=== PATIENT | female | born 1935 | race Caucasian/White ===

== ENCOUNTER → 2018-09-10 10:51 | Outpatient (CLI) | payer MEDICARE, BC, SELFPAY ==
--- NOTE | 2018-09-10 10:55 | DI.RAD.S_ITS ---
PROCEDURE: XR KNEE LT 3V INDICATIONS: CHRONIC KNEE PAIN TECHNIQUE: 3 views of the knee were acquired. COMPARISON: None. FINDINGS: Bones: No fractures or dislocations. No suspicious bony lesions. Chondrocalcinosis projecting in the lateral compartment. There is mild-moderate medial joint space narrowing. Scattered degenerative subchondral sclerosis and spurring. Severe narrowing of the patellofemoral joint space. Soft tissues: No joint effusion. No suspicious soft tissue calcifications. Scattered vascular calcifications. Anterior soft tissue swelling. IMPRESSION: Severe degenerative disease, most pronounced involving the patellofemoral compartment. Chondrocalcinosis. Dictated by: Reji Hitchcock M.D. on 09/10/2018 at 14:07 Approved by: Reji Hitchcock M.D. on 09/10/2018 at 14:08
--- NOTE | 2018-09-10 10:55 | DI.RAD.S_ITS ---
PROCEDURE: XR LUMBAR SPINE MIN 4V INDICATIONS: CHRONIC BACK PAIN TECHNIQUE: 3 views of the lumbar spine were acquired. COMPARISON: [facility], RG, CT L SPINE WITHOUT CONTRAST, 07/06/2017, 6:42. FINDINGS: Bones: L2 compression fracture, with large anterosuperior endplate fracture fragment, and interval height loss since 07/06/17 however no more recent comparison studies. The remaining vertebral body heights appear preserved. Diffuse facet arthropathy. Grade 1 anterolisthesis of L5 on S1. Diffuse mild narrowing of the lumbar disc spaces, with relative sparing at L4-L5. There is levocurvature Soft tissues: Numerous aortic vascular calcifications. Oblique images: No pars defects. IMPRESSION: L2 compression fracture, with interval height loss is 07/06/17 however no additional more recent comparison studies available. If further assessment is necessary, MRI could be performed to evaluate for the presence of marrow edema. Chronic spondylosis and facet arthropathy as above. Grade 1 anterolisthesis of L5 on S1. Levocurvature Dictated by: Reji Hitchcock M.D. on 09/10/2018 at 14:03 Approved by: Reji Hitchcock M.D. on 09/10/2018 at 14:07
== END ==
PROVIDERS: PCP Family Medicine; Visit Provider Physical Medicine & Rehabilitation
DX: M54.9 Dorsalgia, unspecified (principal); M25.562 Pain in left knee; S32.020A Wedge compression fracture of second lumbar vertebra, initial encounter for closed fracture; M47.26 Other spondylosis with radiculopathy, lumbar region; M43.17 Spondylolisthesis, lumbosacral region; M17.12 Unilateral primary osteoarthritis, left knee; M11.262 Other chondrocalcinosis, left knee; G89.29 Other chronic pain
CPT/HCPCS: 72110; 73562; 99215

== ENCOUNTER 2022-01-27 10:37 | Inpatient (IN) | payer MEDICARE, BC, SELFPAY ==
[2022-01-27] VITALS (36 sets, daily range): BP systolic 90–151; BP diastolic 50–86; PULSE 71–95; RESP 10–31; TEMP 36.4; O2SAT 74–99
--- NOTE | 2022-01-27 10:48 | DI.RAD.S_ITS ---
PROCEDURE: XR HIP W PEL IF DONE LT 2V INDICATIONS: Fall, burning left hip pain TECHNIQUE: AP pelvis with lateral view(s) of the left hip(s). COMPARISON: [facility], CT, CT PEL WO CON, 01/27/2022, 11:13. FINDINGS: Bones: There are comminuted fractures of both the superior and inferior left pubic ramus. Hip joint appears intact. Soft tissues: The visualized bowel gas pattern is normal. No suspicious soft tissue calcifications. IMPRESSION: Comminuted minimally displaced superior inferior left pubic rami fractures. Dictated by: Caitlyn Zhang M.D. on 01/27/2022 at 11:23 Approved by: Caitlyn Zhang M.D. on 01/27/2022 at 11:24
--- NOTE | 2022-01-27 11:04 | DI.CT.S_ITS ---
PROCEDURE: CT PEL WO CON INDICATIONS: Fall/pain TECHNIQUE: Noncontrast 3 mm axial sections acquired through the bony pelvis, with coronal and sagittal reformatting. COMPARISON: [facility], , CT L SPINE WITHOUT CONTRAST, 07/06/2017, 6:42. FINDINGS: Image quality: Excellent. Bones: Comminuted fractures of the left superior and inferior pubic rami. The superior pubic ramus fracture is markedly comminuted. No other fractures or dislocations. Hip joints are intact. There is a L5 compression, which is likely chronic. There is severe canal stenosis at L4-L5. Soft tissues: There is a small left pelvic sidewall hematoma. There is a subcutaneous hematoma lateral to the greater tuberosity of the left hip. There is a chronic left UPJ obstruction with marked dilatation of the collecting system and a thin rim cortical tissue, consistent with a nonfunctioning left kidney. IMPRESSION: 1. Comminuted left superior and inferior pubic ramus fractures. 2. Associated pelvic sidewall hematoma, small. Associated subcutaneous hematoma lateral to the greater trochanter of the left hip. 3. L5 compression fracture suggests severe underlying osteoporosis. 4. Severe canal stenosis at L4-L5. 5. 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 Dictated by: Grant Reynoso M.D. on 01/27/2022 at 11:32 Approved by: Grant Reynoso M.D. on 01/27/2022 at 11:36
--- NOTE | 2022-01-27 11:25 | PC.NURSE ---
pt had dialysis yesterday monday01/26/22 and is due again tomorrow monday01/28/22. fistula to right arm no bp or sticks to that arm
[2022-01-27 11:50] LABS: COVID19 -Nasal RAPID Negative (Negative)
--- NOTE | 2022-01-27 11:50 | ED_ITS ---
HPI - Fall <Gregorio Ellis MD - Last Filed: 02/10/22 01:20> General Chief Complaint: Fall Stated Complaint: GLF, left groin pain Time Seen by Provider: 01/27/22 11:04 Source: EMS Mode of arrival: EMS History of Present Illness HPI Narrative: Patient brought in by ambulance for ground level fall at home. Patient was using her walker and it got hung up on the doorway. Fell onto her left hip area. Complains of left groin pain. Denies denies any other injuries. Is not on any blood thinners. Patient does have dialysis Monday and Fridays. Denies any recent illness. Denies any pre event nausea vomiting diarrhea, no chest pain headache palpitations or dyspnea prior to fall Related Data Home Medications Medication Instructions Recorded Confirmed gabapentin 300 mg capsule 600 mg PO ONCE PM 09/10/18 01/27/22 acetaminophen 500 mg tablet 1,000 mg PO Q8H PRN Pain (Scale 11/15/18 01/27/22 (Tylenol Extra Strength) Score 1-3) bisacodyl 10 mg rectal suppository 10 mg RI DAILY PRN Constipation 01/27/22 01/27/22 melatonin 3 mg tablet 3 mg PO BEDTIME PRN Sleep 01/27/22 01/27/22 ondansetron 4 mg disintegrating 4 mg PO Q6H PRN Nausea 01/27/22 01/27/22 tablet polyethylene glycol 3350 17 gram 17 g PO DAILY 01/27/22 01/27/22 oral powder packet (Miralax) sennosides 8.6 mg tablet (senna) 8.6 mg PO BID PRN Constipation 01/27/22 01/27/22 gabapentin 300 mg capsule 600 mg PO BEDTIME 01/28/22 01/28/22 Previous Rx's Medication Instructions Recorded fentanyl 12 mcg/hr transdermal 12 mcg topical Q72H 15 days #5 ea 02/01/22 patch oxycodone 5 mg tablet 5 - 10 mg PO Q3HR PRN Pain, Severe 02/01/22 (7-10) 14 days #60 tabs Allergies Allergy/AdvReac Type Severity Reaction Status Date / Time amoxicillin Allergy Verified 01/27/22 10:47 codeine Allergy Verified 01/27/22 10:47 hydrocodone Allergy Verified 01/27/22 10:47 Sulfa (Sulfonamide Allergy Verified 01/27/22 10:47 Antibiotics) Review of Systems <Gregorio Ellis MD - Last Filed: 02/10/22 01:20> Review of Systems Narrative: GENERAL: Denies chills, fatigue, malaise, fever, sweats. HEENT: Denies sinus pain, ear pain, sore throat RESPIRATORY: Denies dyspnea, cough CARDIOVASCULAR: Denies chest pain, palpitations GASTROINTESTINAL: Denies nausea, vomiting, abdominal pain : Denies dysuria, frequency, hematuria MUSCULOSKELETAL: Positive muscle or bony pain SKIN: Denies rash, skin lesions NEUROLOGIC: Denies weakness, numbness ROS Unobtainable: All systems reviewed & are unremarkable except as noted in HPI and below Patient History <Gregorio Ellis MD - Last Filed: 02/10/22 01:20> Social History household members: none Smoking Status: Never smoker alcohol intake: never Substance Use Type: does not use Exam <Gregorio Ellis MD - Last Filed: 02/10/22 01:20> Narrative Exam Narrative: GENERAL: in no distress, not toxic not dyspneic HEAD: Normocephalic. Nontender scalp and face EYES: Pupils equal round No scleral icterus. ENT: Mucous membranes moist. NECK: Trachea midline. CARDIOVASCULAR: Regular rate and rhythm without murmurs RESPIRATORY: Clear to auscultation. Breath sounds equal bilaterally. No wheezes, rales, or rhonchi. GASTROINTESTINAL: Abdomen soft, non-tender EXTREMITIES: No gross deformities. No shortening or rotation of the left lower extremity. Strong pedal pulse, feet or warm soft and pink. Pain with elevating/moving left leg. NEURO: AOx4. SKIN: Warm and dry PSYCH: Not anxious, is cooperative Initial Vital Signs Initial Vital Signs: Vital Signs Respiratory Rate 17 01/27/22 10:39 Blood Pressure 147/65 H 01/27/22 10:39 <Carroll Alves, DO - Last Filed: 01/29/22 23:20> Initial Vital Signs Initial Vital Signs: Vital Signs Respiratory Rate 17 01/27/22 10:39 Blood Pressure 147/65 H 01/27/22 10:39 <Zion Simon, DO - Last Filed: 01/28/22 18:59> Initial Vital Signs Initial Vital Signs: Vital Signs Respiratory Rate 17 01/27/22 10:39 Blood Pressure 147/65 H 01/27/22 10:39 <Reza Chawla MD - Last Filed: 01/29/22 13:45> Initial Vital Signs Initial Vital Signs: Vital Signs Respiratory Rate 17 01/27/22 10:39 Blood Pressure 147/65 H 01/27/22 10:39 Course <Gregorio Ellis MD - Last Filed: 02/10/22 01:20> Course Course Narrative: 6:00 p.m.. Sign out to Dr. Alves, patient has been seen by Physical therapy as well as social work. Patient will need transfer for sniff placement but also will need dialysis. Patient will need dialysis tomorrow. Orders Ordered: Discontinued Medications Acetaminophen (Acetaminophen 325 Mg Tablet) 975 mg PO NOW ONE Stop: 01/27/22 12:14 Last Admin: 01/27/22 12:24 Dose: 975 mg Documented By: ANJALI Atorvastatin Calcium (Atorvastatin 20 Mg Tablet) 10 mg PO NOW ONE Stop: 01/27/22 18:40 Last Admin: 01/27/22 19:09 Dose: Not Given Documented By: ANJALI(2) Atorvastatin Calcium (Atorvastatin 20 Mg Tablet) 40 mg PO NOW ONE Stop: 01/27/22 19:09 Last Admin: 01/27/22 21:12 Dose: 40 mg Documented By: CATHY Fentanyl (Fentanyl 12 Mcg/Patch) 12 mcg TOP Q72H [facility] Last Admin: 02/02/22 11:07 Dose: 12 mcg Documented By: Admin: 01/30/22 11:43 Dose: 12 mcg Documented By: RILEY Gabapentin (Gabapentin 300 Mg Capsule) 300 mg PO BEDTIME [facility] Last Admin: 01/28/22 21:51 Dose: 300 mg Documented By: Admin: 01/27/22 21:13 Dose: 300 mg Documented By: CATHY Gabapentin (Gabapentin 600 Mg Tablet) 600 mg PO BEDTIME [facility] Gabapentin (Gabapentin 300 Mg Capsule) 600 mg PO BEDTIME [facility] Last Admin: 02/01/22 20:11 Dose: 600 mg Documented By: Admin: 01/31/22 21:38 Dose: 600 mg Documented By: Admin: 01/30/22 21:08 Dose: 600 mg Documented By: Admin: 01/30/22 00:28 Dose: Not Given Documented By: CASTILLO Gabapentin (Gabapentin 300 Mg Capsule) 600 mg PO DAILY@1700 [facility] Last Admin: 02/01/22 18:30 Dose: 600 mg Documented By: Admin: 01/31/22 17:18 Dose: 600 mg Documented By: Admin: 01/30/22 17:04 Dose: 600 mg Documented By: Admin: 01/29/22 17:12 Dose: Not Given Documented By: AWF Lorazepam (Lorazepam 2 Mg/Ml Inj) 1 mg IV Q1HR PRN PRN Reason: Agitation/Anxiety Melatonin (Melatonin 3 Mg Tablet) 3 mg PO BEDTIME PRN PRN Reason: Sleep Morphine Sulfate (Morphine 2 Mg/Ml Inj) 2 mg IV Q30MIN PRN PRN Reason: Pain/Dyspnea Ondansetron HCl (Ondansetron 4 Mg/2 Ml Inj) 4 mg IV NOW ONE Stop: 01/27/22 12:14 Last Admin: 01/27/22 12:24 Dose: 4 mg Documented By: ANJALI Ondansetron HCl (Ondansetron 4 Mg/2 Ml Inj) 4 mg IV Q4HR PRN PRN Reason: Nausea And Vomiting Last Admin: 01/29/22 08:40 Dose: 4 mg Documented By: DAVID Oxycodone HCl (Oxycodone Ir 5 Mg Tablet) 5 mg PO Q4H PRN PRN Reason: Pain (Scale Score 4-6) Last Admin: 02/02/22 11:07 Dose: 5 mg Documented By: Admin: 01/30/22 19:17 Dose: 5 mg Documented By: Admin: 01/30/22 08:59 Dose: 5 mg Documented By: Admin: 01/30/22 03:28 Dose: 5 mg Documented By: CASTILLO Oxycodone HCl (Oxycodone Ir 5 Mg Tablet) 10 mg PO Q3HR PRN PRN Reason: Pain, Severe (7-10) Last Admin: 02/01/22 05:55 Dose: 10 mg Documented By: Admin: 01/31/22 18:29 Dose: 10 mg Documented By: Admin: 01/31/22 13:02 Dose: 10 mg Documented By: Admin: 01/31/22 05:31 Dose: 10 mg Documented By: Oxycodone/Acetaminophen (Oxycodone/Acetaminophen 5/325 Tablet) 1 tab PO NOW ONE Stop: 01/27/22 13:31 Last Admin: 01/27/22 13:46 Dose: 1 tab Documented By: CATHY Oxycodone/Acetaminophen (Oxycodone/Acetaminophen 5/325 Tablet) 1 tab PO NOW ONE Stop: 01/27/22 17:06 Last Admin: 01/27/22 17:17 Dose: 1 tab Documented By: CATHY Oxycodone/Acetaminophen (Oxycodone/Acetaminophen 5/325 Tablet) 1 tab PO NOW ONE Stop: 01/27/22 21:09 Last Admin: 01/27/22 21:12 Dose: 1 tab Documented By: CATHY Oxycodone/Acetaminophen (Oxycodone/Acetaminophen 5/325 Tablet) 1 tab PO Q4HR PRN PRN Reason: Pain, Severe (7-10) Last Admin: 01/29/22 14:44 Dose: 1 tab Documented By: Admin: 01/29/22 08:41 Dose: 1 tab Documented By: Admin: 01/28/22 22:02 Dose: 1 tab Documented By: Admin: 01/28/22 18:05 Dose: 1 tab Documented By: Admin: 01/28/22 11:06 Dose: 1 tab Documented By: Admin: 01/28/22 07:50 Dose: 1 tab Documented By: Admin: 01/28/22 02:25 Dose: 1 tab Documented By: JULIÁN Scopolamine (Scopolamine 1 Patch) 1 patch TOP Q72H PRN PRN Reason: Secretions Consultations Consultation #1: Spoke with Dr. Guadalupe, orthopedics, appropriate for medical management and physical therapy evaluation and treatment. Injury is nonsurgical. Vital Signs Vital signs: Vital Signs - 8 hr 01/29/22 08:27 01/29/22 08:28 01/29/22 08:28 Pulse Rate 108 H 107 H Blood Pressure 115/70 Pulse Oximetry 90 L 89 L 01/29/22 08:30 01/29/22 08:30 01/29/22 08:59 Pulse Rate 108 H 92 H Blood Pressure 101/56 L Pulse Oximetry 90 L 95 01/29/22 09:00 01/29/22 09:30 01/29/22 09:31 Pulse Rate 103 H 103 H Blood Pressure 107/72 Pulse Oximetry 97 96 01/29/22 09:31 01/29/22 10:00 01/29/22 10:00 Pulse Rate 104 H Blood Pressure 94/60 127/63 Pulse Oximetry 98 01/29/22 10:30 01/29/22 10:30 01/29/22 11:00 Pulse Rate 110 H 109 H Blood Pressure 123/87 Pulse Oximetry 99 100 01/29/22 11:01 01/29/22 11:01 Pulse Rate 109 H Blood Pressure 152/77 H Pulse Oximetry 100 <Carroll Alves, DO - Last Filed: 01/29/22 23:20> Course Course Narrative: 6:00 p.m.. Sign out to Dr. Alves, patient has been seen by Physical therapy as well as social work. Patient will need transfer for sniff placement but also will need dialysis. Patient will need dialysis tomorrow. [1800] (Long) Patient received in sign out from [Caleb]. I have reviewed the clinical course and performed an independent history and physical exam. Patient resting comfortably, she understands and agrees with the plan. Orders Ordered: Discontinued Medications Acetaminophen (Acetaminophen 325 Mg Tablet) 975 mg PO NOW ONE Stop: 01/27/22 12:14 Last Admin: 01/27/22 12:24 Dose: 975 mg Documented By: ANJALI Atorvastatin Calcium (Atorvastatin 20 Mg Tablet) 10 mg PO NOW ONE Stop: 01/27/22 18:40 Last Admin: 01/27/22 19:09 Dose: Not Given Documented By: ANJALI(2) Atorvastatin Calcium (Atorvastatin 20 Mg Tablet) 40 mg PO NOW ONE Stop: 01/27/22 19:09 Last Admin: 01/27/22 21:12 Dose: 40 mg Documented By: CAHTY Fentanyl (Fentanyl 12 Mcg/Patch) 12 mcg TOP Q72H [facility] Last Admin: 02/02/22 11:07 Dose: 12 mcg Documented By: Admin: 01/30/22 11:43 Dose: 12 mcg Documented By: CLL Gabapentin (Gabapentin 300 Mg Capsule) 300 mg PO BEDTIME [facility] Last Admin: 01/28/22 21:51 Dose: 300 mg Documented By: Admin: 01/27/22 21:13 Dose: 300 mg Documented By: CATYH Gabapentin (Gabapentin 600 Mg Tablet) 600 mg PO BEDTIME [facility] Gabapentin (Gabapentin 300 Mg Capsule) 600 mg PO BEDTIME [facility] Last Admin: 02/01/22 20:11 Dose: 600 mg Documented By: Admin: 01/31/22 21:38 Dose: 600 mg Documented By: Admin: 01/30/22 21:08 Dose: 600 mg Documented By: Admin: 01/30/22 00:28 Dose: Not Given Documented By: CASTILLO Gabapentin (Gabapentin 300 Mg Capsule) 600 mg PO DAILY@1700 [facility] Last Admin: 02/01/22 18:30 Dose: 600 mg Documented By: Admin: 01/31/22 17:18 Dose: 600 mg Documented By: Admin: 01/30/22 17:04 Dose: 600 mg Documented By: Admin: 01/29/22 17:12 Dose: Not Given Documented By: AWF Lorazepam (Lorazepam 2 Mg/Ml Inj) 1 mg IV Q1HR PRN PRN Reason: Agitation/Anxiety Melatonin (Melatonin 3 Mg Tablet) 3 mg PO BEDTIME PRN PRN Reason: Sleep Morphine Sulfate (Morphine 2 Mg/Ml Inj) 2 mg IV Q30MIN PRN PRN Reason: Pain/Dyspnea Ondansetron HCl (Ondansetron 4 Mg/2 Ml Inj) 4 mg IV NOW ONE Stop: 01/27/22 12:14 Last Admin: 01/27/22 12:24 Dose: 4 mg Documented By: ANJALI Ondansetron HCl (Ondansetron 4 Mg/2 Ml Inj) 4 mg IV Q4HR PRN PRN Reason: Nausea And Vomiting Last Admin: 01/29/22 08:40 Dose: 4 mg Documented By: DAVID Oxycodone HCl (Oxycodone Ir 5 Mg Tablet) 5 mg PO Q4H PRN PRN Reason: Pain (Scale Score 4-6) Last Admin: 02/02/22 11:07 Dose: 5 mg Documented By: Admin: 01/30/22 19:17 Dose: 5 mg Documented By: Admin: 01/30/22 08:59 Dose: 5 mg Documented By: Admin: 01/30/22 03:28 Dose: 5 mg Documented By: CASTILLO Oxycodone HCl (Oxycodone Ir 5 Mg Tablet) 10 mg PO Q3HR PRN PRN Reason: Pain, Severe (7-10) Last Admin: 02/01/22 05:55 Dose: 10 mg Documented By: Admin: 01/31/22 18:29 Dose: 10 mg Documented By: Admin: 01/31/22 13:02 Dose: 10 mg Documented By: Admin: 01/31/22 05:31 Dose: 10 mg Documented By: Oxycodone/Acetaminophen (Oxycodone/Acetaminophen 5/325 Tablet) 1 tab PO NOW ONE Stop: 01/27/22 13:31 Last Admin: 01/27/22 13:46 Dose: 1 tab Documented By: CATHY Oxycodone/Acetaminophen (Oxycodone/Acetaminophen 5/325 Tablet) 1 tab PO NOW ONE Stop: 01/27/22 17:06 Last Admin: 01/27/22 17:17 Dose: 1 tab Documented By: CATHY Oxycodone/Acetaminophen (Oxycodone/Acetaminophen 5/325 Tablet) 1 tab PO NOW ONE Stop: 01/27/22 21:09 Last Admin: 01/27/22 21:12 Dose: 1 tab Documented By: CATHY Oxycodone/Acetaminophen (Oxycodone/Acetaminophen 5/325 Tablet) 1 tab PO Q4HR PRN PRN Reason: Pain, Severe (7-10) Last Admin: 01/29/22 14:44 Dose: 1 tab Documented By: Admin: 01/29/22 08:41 Dose: 1 tab Documented By: Admin: 01/28/22 22:02 Dose: 1 tab Documented By: Admin: 01/28/22 18:05 Dose: 1 tab Documented By: Admin: 01/28/22 11:06 Dose: 1 tab Documented By: Admin: 01/28/22 07:50 Dose: 1 tab Documented By: Admin: 01/28/22 02:25 Dose: 1 tab Documented By: JULIÁN Scopolamine (Scopolamine 1 Patch) 1 patch TOP Q72H PRN PRN Reason: Secretions Vital Signs Vital signs: Vital Signs - 8 hr 01/29/22 08:27 01/29/22 08:28 01/29/22 08:28 Pulse Rate 108 H 107 H Blood Pressure 115/70 Pulse Oximetry 90 L 89 L 01/29/22 08:30 01/29/22 08:30 01/29/22 08:59 Pulse Rate 108 H 92 H Blood Pressure 101/56 L Pulse Oximetry 90 L 95 01/29/22 09:00 01/29/22 09:30 01/29/22 09:31 Pulse Rate 103 H 103 H Blood Pressure 107/72 Pulse Oximetry 97 96 01/29/22 09:31 01/29/22 10:00 01/29/22 10:00 Pulse Rate 104 H Blood Pressure 94/60 127/63 Pulse Oximetry 98 01/29/22 10:30 01/29/22 10:30 01/29/22 11:00 Pulse Rate 110 H 109 H Blood Pressure 123/87 Pulse Oximetry 99 100 01/29/22 11:01 01/29/22 11:01 Pulse Rate 109 H Blood Pressure 152/77 H Pulse Oximetry 100 <Zion Simon, DO - Last Filed: 01/28/22 18:59> Orders Ordered: Discontinued Medications Acetaminophen (Acetaminophen 325 Mg Tablet) 975 mg PO NOW ONE Stop: 01/27/22 12:14 Last Admin: 01/27/22 12:24 Dose: 975 mg Documented By: ANJALI Atorvastatin Calcium (Atorvastatin 20 Mg Tablet) 10 mg PO NOW ONE Stop: 01/27/22 18:40 Last Admin: 01/27/22 19:09 Dose: Not Given Documented By: ANJALI(2) Atorvastatin Calcium (Atorvastatin 20 Mg Tablet) 40 mg PO NOW ONE Stop: 01/27/22 19:09 Last Admin: 01/27/22 21:12 Dose: 40 mg Documented By: CATHY Fentanyl (Fentanyl 12 Mcg/Patch) 12 mcg TOP Q72H [facility] Last Admin: 02/02/22 11:07 Dose: 12 mcg Documented By: Admin: 01/30/22 11:43 Dose: 12 mcg Documented By: RILEY Gabapentin (Gabapentin 300 Mg Capsule) 300 mg PO BEDTIME [facility] Last Admin: 01/28/22 21:51 Dose: 300 mg Documented By: Admin: 01/27/22 21:13 Dose: 300 mg Documented By: CATHY Gabapentin (Gabapentin 600 Mg Tablet) 600 mg PO BEDTIME [facility] Gabapentin (Gabapentin 300 Mg Capsule) 600 mg PO BEDTIME [facility] Last Admin: 02/01/22 20:11 Dose: 600 mg Documented By: Admin: 01/31/22 21:38 Dose: 600 mg Documented By: Admin: 01/30/22 21:08 Dose: 600 mg Documented By: Admin: 01/30/22 00:28 Dose: Not Given Documented By: CASTILLO Gabapentin (Gabapentin 300 Mg Capsule) 600 mg PO DAILY@1700 [facility] Last Admin: 02/01/22 18:30 Dose: 600 mg Documented By: Admin: 01/31/22 17:18 Dose: 600 mg Documented By: Admin: 01/30/22 17:04 Dose: 600 mg Documented By: Admin: 01/29/22 17:12 Dose: Not Given Documented By: TEE Lorazepam (Lorazepam 2 Mg/Ml Inj) 1 mg IV Q1HR PRN PRN Reason: Agitation/Anxiety Melatonin (Melatonin 3 Mg Tablet) 3 mg PO BEDTIME PRN PRN Reason: Sleep Morphine Sulfate (Morphine 2 Mg/Ml Inj) 2 mg IV Q30MIN PRN PRN Reason: Pain/Dyspnea Ondansetron HCl (Ondansetron 4 Mg/2 Ml Inj) 4 mg IV NOW ONE Stop: 01/27/22 12:14 Last Admin: 01/27/22 12:24 Dose: 4 mg Documented By: ANJALI Ondansetron HCl (Ondansetron 4 Mg/2 Ml Inj) 4 mg IV Q4HR PRN PRN Reason: Nausea And Vomiting Last Admin: 01/29/22 08:40 Dose: 4 mg Documented By: DAVID Oxycodone HCl (Oxycodone Ir 5 Mg Tablet) 5 mg PO Q4H PRN PRN Reason: Pain (Scale Score 4-6) Last Admin: 02/02/22 11:07 Dose: 5 mg Documented By: Admin: 01/30/22 19:17 Dose: 5 mg Documented By: Admin: 01/30/22 08:59 Dose: 5 mg Documented By: Admin: 01/30/22 03:28 Dose: 5 mg Documented By: CASTILLO Oxycodone HCl (Oxycodone Ir 5 Mg Tablet) 10 mg PO Q3HR PRN PRN Reason: Pain, Severe (7-10) Last Admin: 02/01/22 05:55 Dose: 10 mg Documented By: Admin: 01/31/22 18:29 Dose: 10 mg Documented By: Admin: 01/31/22 13:02 Dose: 10 mg Documented By: Admin: 01/31/22 05:31 Dose: 10 mg Documented By: Oxycodone/Acetaminophen (Oxycodone/Acetaminophen 5/325 Tablet) 1 tab PO NOW ONE Stop: 01/27/22 13:31 Last Admin: 01/27/22 13:46 Dose: 1 tab Documented By: CATHY Oxycodone/Acetaminophen (Oxycodone/Acetaminophen 5/325 Tablet) 1 tab PO NOW ONE Stop: 01/27/22 17:06 Last Admin: 01/27/22 17:17 Dose: 1 tab Documented By: CATHY Oxycodone/Acetaminophen (Oxycodone/Acetaminophen 5/325 Tablet) 1 tab PO NOW ONE Stop: 01/27/22 21:09 Last Admin: 01/27/22 21:12 Dose: 1 tab Documented By: CATHY Oxycodone/Acetaminophen (Oxycodone/Acetaminophen 5/325 Tablet) 1 tab PO Q4HR PRN PRN Reason: Pain, Severe (7-10) Last Admin: 01/29/22 14:44 Dose: 1 tab Documented By: Admin: 01/29/22 08:41 Dose: 1 tab Documented By: Admin: 01/28/22 22:02 Dose: 1 tab Documented By: Admin: 01/28/22 18:05 Dose: 1 tab Documented By: Admin: 01/28/22 11:06 Dose: 1 tab Documented By: Admin: 01/28/22 07:50 Dose: 1 tab Documented By: Admin: 01/28/22 02:25 Dose: 1 tab Documented By: JULIÁN Scopolamine (Scopolamine 1 Patch) 1 patch TOP Q72H PRN PRN Reason: Secretions Vital Signs Vital signs: Vital Signs - 8 hr 01/29/22 08:27 01/29/22 08:28 01/29/22 08:28 Pulse Rate 108 H 107 H Blood Pressure 115/70 Pulse Oximetry 90 L 89 L 01/29/22 08:30 01/29/22 08:30 01/29/22 08:59 Pulse Rate 108 H 92 H Blood Pressure 101/56 L Pulse Oximetry 90 L 95 01/29/22 09:00 01/29/22 09:30 01/29/22 09:31 Pulse Rate 103 H 103 H Blood Pressure 107/72 Pulse Oximetry 97 96 01/29/22 09:31 01/29/22 10:00 01/29/22 10:00 Pulse Rate 104 H Blood Pressure 94/60 127/63 Pulse Oximetry 98 01/29/22 10:30 01/29/22 10:30 01/29/22 11:00 Pulse Rate 110 H 109 H Blood Pressure 123/87 Pulse Oximetry 99 100 10/08/22 11:01 01/29/22 11:01 Pulse Rate 109 H Blood Pressure 152/77 H Pulse Oximetry 100 <Reza Chawla MD - Last Filed: 01/29/22 13:45> Course Course Narrative: 6:00 p.m.. Sign out to Dr. Alves, patient has been seen by Physical therapy as well as social work. Patient will need transfer for sniff placement but also will need dialysis. Patient will need dialysis tomorrow. [1800] (Long) Patient received in sign out from Dr. Amado]. I have reviewed the clinical course and performed an independent history and physical exam. Patient resting comfortably, she understands and agrees with the plan. I assumed care from Dr. Alves at change of shift. Efforts to transfer the patient have continued. To the patient's children been with her. The patient is alert, orient x3. She is fully aware of her medical situation and her medical needs. With her adult children present, she announced her wishes to assume a comfort measure only medical care status. Hospitalist,Dr Kenney, was consulted. Case management involved. Hospice will not likely be available until Monday. Patient is admitted, comfort care only.- Noe BLANCHARD. 13:10 01/29/22. Orders Ordered: Discontinued Medications Acetaminophen (Acetaminophen 325 Mg Tablet) 975 mg PO NOW ONE Stop: 01/27/22 12:14 Last Admin: 01/27/22 12:24 Dose: 975 mg Documented By: ANJALI Atorvastatin Calcium (Atorvastatin 20 Mg Tablet) 10 mg PO NOW ONE Stop: 01/27/22 18:40 Last Admin: 01/27/22 19:09 Dose: Not Given Documented By: ANJALI(2) Atorvastatin Calcium (Atorvastatin 20 Mg Tablet) 40 mg PO NOW ONE Stop: 01/27/22 19:09 Last Admin: 01/27/22 21:12 Dose: 40 mg Documented By: NR Fentanyl (Fentanyl 12 Mcg/Patch) 12 mcg TOP Q72H [facility] Last Admin: 02/02/22 11:07 Dose: 12 mcg Documented By: Admin: 01/30/22 11:43 Dose: 12 mcg Documented By: CLL Gabapentin (Gabapentin 300 Mg Capsule) 300 mg PO BEDTIME [facility] Last Admin: 01/28/22 21:51 Dose: 300 mg Documented By: Admin: 01/27/22 21:13 Dose: 300 mg Documented By: CATHY Gabapentin (Gabapentin 600 Mg Tablet) 600 mg PO BEDTIME [facility] Gabapentin (Gabapentin 300 Mg Capsule) 600 mg PO BEDTIME [facility] Last Admin: 02/01/22 20:11 Dose: 600 mg Documented By: Admin: 01/31/22 21:38 Dose: 600 mg Documented By: Admin: 01/30/22 21:08 Dose: 600 mg Documented By: Admin: 01/30/22 00:28 Dose: Not Given Documented By: JOSE DW Gabapentin (Gabapentin 300 Mg Capsule) 600 mg PO DAILY@1700 [facility] Last Admin: 02/01/22 18:30 Dose: 600 mg Documented By: Admin: 01/31/22 17:18 Dose: 600 mg Documented By: Admin: 01/30/22 17:04 Dose: 600 mg Documented By: Admin: 01/29/22 17:12 Dose: Not Given Documented By: AWCrystal Lorazepam (Lorazepam 2 Mg/Ml Inj) 1 mg IV Q1HR PRN PRN Reason: Agitation/Anxiety Melatonin (Melatonin 3 Mg Tablet) 3 mg PO BEDTIME PRN PRN Reason: Sleep Morphine Sulfate (Morphine 2 Mg/Ml Inj) 2 mg IV Q30MIN PRN PRN Reason: Pain/Dyspnea Ondansetron HCl (Ondansetron 4 Mg/2 Ml Inj) 4 mg IV NOW ONE Stop: 01/27/22 12:14 Last Admin: 01/27/22 12:24 Dose: 4 mg Documented By: ANJALI Ondansetron HCl (Ondansetron 4 Mg/2 Ml Inj) 4 mg IV Q4HR PRN PRN Reason: Nausea And Vomiting Last Admin: 01/29/22 08:40 Dose: 4 mg Documented By: DAVID Oxycodone HCl (Oxycodone Ir 5 Mg Tablet) 5 mg PO Q4H PRN PRN Reason: Pain (Scale Score 4-6) Last Admin: 02/02/22 11:07 Dose: 5 mg Documented By: Admin: 01/30/22 19:17 Dose: 5 mg Documented By: Admin: 01/30/22 08:59 Dose: 5 mg Documented By: Admin: 01/30/22 03:28 Dose: 5 mg Documented By: CASTILLO Oxycodone HCl (Oxycodone Ir 5 Mg Tablet) 10 mg PO Q3HR PRN PRN Reason: Pain, Severe (7-10) Last Admin: 02/01/22 05:55 Dose: 10 mg Documented By: Admin: 01/31/22 18:29 Dose: 10 mg Documented By: Admin: 01/31/22 13:02 Dose: 10 mg Documented By: Admin: 01/31/22 05:31 Dose: 10 mg Documented By: Oxycodone/Acetaminophen (Oxycodone/Acetaminophen 5/325 Tablet) 1 tab PO NOW ONE Stop: 01/27/22 13:31 Last Admin: 01/27/22 13:46 Dose: 1 tab Documented By: CATHY Oxycodone/Acetaminophen (Oxycodone/Acetaminophen 5/325 Tablet) 1 tab PO NOW ONE Stop: 01/27/22 17:06 Last Admin: 01/27/22 17:17 Dose: 1 tab Documented By: CATHY Oxycodone/Acetaminophen (Oxycodone/Acetaminophen 5/325 Tablet) 1 tab PO NOW ONE Stop: 01/27/22 21:09 Last Admin: 01/27/22 21:12 Dose: 1 tab Documented By: CATHY Oxycodone/Acetaminophen (Oxycodone/Acetaminophen 5/325 Tablet) 1 tab PO Q4HR PRN PRN Reason: Pain, Severe (7-10) Last Admin: 01/29/22 14:44 Dose: 1 tab Documented By: Admin: 01/29/22 08:41 Dose: 1 tab Documented By: Admin: 01/28/22 22:02 Dose: 1 tab Documented By: Admin: 01/28/22 18:05 Dose: 1 tab Documented By: Admin: 01/28/22 11:06 Dose: 1 tab Documented By: Admin: 01/28/22 07:50 Dose: 1 tab Documented By: Admin: 01/28/22 02:25 Dose: 1 tab Documented By: JULIÁN Scopolamine (Scopolamine 1 Patch) 1 patch TOP Q72H PRN PRN Reason: Secretions Vital Signs Vital signs: Vital Signs - 8 hr 01/29/22 08:27 01/29/22 08:28 01/29/22 08:28 Pulse Rate 108 H 107 H Blood Pressure 115/70 Pulse Oximetry 90 L 89 L 01/29/22 08:30 01/29/22 08:30 01/29/22 08:59 Pulse Rate 108 H 92 H Blood Pressure 101/56 L Pulse Oximetry 90 L 95 01/29/22 09:00 01/29/22 09:30 01/29/22 09:31 Pulse Rate 103 H 103 H Blood Pressure 107/72 Pulse Oximetry 97 96 01/29/22 09:31 01/29/22 10:00 01/29/22 10:00 Pulse Rate 104 H Blood Pressure 94/60 127/63 Pulse Oximetry 98 01/29/22 10:30 01/29/22 10:30 01/29/22 11:00 Pulse Rate 110 H 109 H Blood Pressure 123/87 Pulse Oximetry 99 100 01/29/22 11:01 01/29/22 11:01 Pulse Rate 109 H Blood Pressure 152/77 H Pulse Oximetry 100 MDM - Fall <Gregorio Ellis MD - Last Filed: 02/10/22 01:20> Differential Diagnosis Differential diagnosis: Likely other (Hip fracture/pelvic fracture) Lab Data Result diagrams: 01/28/22 18:40 01/28/22 18:40 Labs: Lab Results 01/27/22 01/27/22 01/27/22 Range/Units 11:18 11:30 11:30 WBC 6.0 (4.5-11.0) X10^3/uL RBC 3.61 L (4.0-5.2) X10^6/uL Hgb 11.5 L (12.0-16.0) g/dL Hct 35.1 L (36-46) % MCV 97.2 (80-100) fL MCH 32.0 (26-34) PG MCHC 32.9 (30-36) % RDW 18.5 H (11.6-14.8) % Plt Count 157 (150-400) X10^3/uL Neut % (Auto) 93.7 H (50-75) % Lymph % (Auto) 4.5 L (25-40) % Freestone % (Auto) 1.6 L (3-14) % Eos % (Auto) 0.1 L (2-4) % Baso % (Auto) 0.1 (0-2) % Neut # (Auto) 5600 (8331-8177) /uL Lymph # (Auto) 300 L (7763-7462) /uL Freestone # (Auto) 100 (0-900) /uL Eos # (Auto) 0 (0-450) /uL Baso # (Auto) 0 (0-100) /uL Sodium 136 L (137-145) mmol/L Potassium 4.6 (3.4-5.1) mmol/L Chloride 92 L (98-107) mmol/L Carbon Dioxide 29 (22-32) mmol/L BUN 21 H (7-17) mg/dL Creatinine 3.75 H (0.52-1.04) mg/dL Estimated GFR 11 L (>60) mL/min BUN/Creatinine Ratio 5.6 L (6-22) Glucose 229 H (80-110) mg/dL Calcium 8.3 L (8.4-10.2) mg/dL Total Bilirubin 1.3 (0.2-1.3) mg/dL AST 29 (14-36) IU/L ALT 22 (<35) IU/L Alkaline Phosphatase 128 H (38-126) U/L Total Protein 6.9 (6.3-8.2) g/dL Albumin 3.7 (3.5-5.0) g/dL Globulin 3.2 (1.7-4.1) g/dL Albumin/Globulin Ratio 1.2 (1.0-2.8) SARS-CoV-2 (PCR) Negative (Negative) 01/28/22 01/28/22 01/29/22 Range/Units 18:40 18:40 14:31 WBC 8.0 (4.5-11.0) X10^3/uL RBC 2.90 L (4.0-5.2) X10^6/uL Hgb 9.6 L (12.0-16.0) g/dL Hct 27.8 L (36-46) % MCV 95.7 (80-100) fL MCH 33.0 (26-34) PG MCHC 34.5 (30-36) % RDW 18.8 H (11.6-14.8) % Plt Count 146 L (150-400) X10^3/uL Neut % (Auto) 80.5 H (50-75) % Lymph % (Auto) 8.1 L (25-40) % Freestone % (Auto) 10.6 (3-14) % Eos % (Auto) 0.4 L (2-4) % Baso % (Auto) 0.4 (0-2) % Neut # (Auto) 6400 (0437-5670) /uL Lymph # (Auto) 600 L (4635-1589) /uL Freestone # (Auto) 800 (0-900) /uL Eos # (Auto) 0 (0-450) /uL Baso # (Auto) 0 (0-100) /uL Sodium 139 (137-145) mmol/L Potassium 3.4 D (3.4-5.1) mmol/L Chloride 95 L (98-107) mmol/L Carbon Dioxide 36 H (22-32) mmol/L BUN 16 (7-17) mg/dL Creatinine 2.44 H (0.52-1.04) mg/dL Estimated GFR 19 L (>60) mL/min BUN/Creatinine Ratio 6.6 (6-22) Glucose 221 H (80-110) mg/dL Calcium 7.9 L (8.4-10.2) mg/dL Total Bilirubin 1.0 (0.2-1.3) mg/dL AST 21 (14-36) IU/L ALT 19 (<35) IU/L Alkaline Phosphatase 100 (38-126) U/L Total Protein 6.1 L (6.3-8.2) g/dL Albumin 3.2 L (3.5-5.0) g/dL Globulin 2.9 (1.7-4.1) g/dL Albumin/Globulin Ratio 1.1 (1.0-2.8) SARS-CoV-2 (PCR) Negative (Negative) Imaging Data Extremity x-ray #1: Radiologist's Impression: [address] [address] XRay Report Signed Patient: Abiola Moreno MR#: [id number] : 1935 Acct:[id number] Age/Sex: 86 / F Date of Service: 01/27/22 Loc: ED Accession Number: [id number] ?? Procedure: XR hip w pel if done LT 2V Ordering Provider: Gregorio Ellis MD PROCEDURE:? XR HIP W PEL IF DONE LT 2V ? INDICATIONS:? Fall, burning left hip pain ? TECHNIQUE:? AP pelvis with lateral view(s) of the left hip(s).? ? COMPARISON:? [facility], CT, CT PEL WO CON, 01/27/2022, 11:13. ? FINDINGS:? ? Bones:? There are comminuted fractures of both the superior and inferior left pubic ramus.? Hip joint appears intact. ? Soft tissues:? The visualized bowel gas pattern is normal.? No suspicious soft tissue calcifications.? ? ? IMPRESSION:? Comminuted minimally displaced superior inferior left pubic rami fractures. ? Dictated by: Caitlyn Zhang M.D. on 01/27/2022 at 11:23 ? ? Approved by: Caitlyn Zhang M.D. on 01/27/2022 at 11:24 ? Extremity x-ray #2: Radiologist's Impression: [address] [address] [address] Scan Report Signed Patient: Abiola Moreno MR#: [id number] : 1935 Acct:[id number] Age/Sex: 86 / F Date of Service: 01/27/22 Loc: ED Accession Number: [id number] ?? Procedure: CT pelvis wo con Ordering Provider: Gregorio Ellis MD PROCEDURE:? CT PEL WO CON ? INDICATIONS:? Fall/pain ? TECHNIQUE:? Noncontrast 3 mm axial sections acquired through the bony pelvis, with coronal and sagittal reformatting.? ? COMPARISON:? [facility], , CT L SPINE WITHOUT CONTRAST, 07/06/2017, 6:42. ? FINDINGS:? Image quality:? Excellent.? ? Bones:? Comminuted fractures of the left superior and inferior pubic rami.? The superior pubic ramus fracture is markedly comminuted.? No other fractures or dislocations.? Hip joints are intact.? There is a L5 compression, which is likely chronic.? There is severe canal stenosis at L4-L5. ? Soft tissues:? There is a small left pelvic sidewall hematoma.? There is a subcutaneous hematoma lateral to the greater tuberosity of the left hip.? There is a chronic left UPJ obstruction with marked dilatation of the collecting system and a thin rim cortical tissue, consistent with a nonfunctioning left kidney. ? ? IMPRESSION:? ? 1. Comminuted left superior and inferior pubic ramus fractures. ? 2. Associated pelvic sidewall hematoma, small.? Associated subcutaneous hematoma lateral to the greater trochanter of the left hip. ? 3. L5 compression fracture suggests severe underlying osteoporosis. ? 4. Severe canal stenosis at L4-L5. ? 5. 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 Dictated by: Grant Reynoso M.D. on 01/27/2022 at 11:32 ? ? Approved by: Grant Reynoso M.D. on 01/27/2022 at 11:36 ? <Carroll Alves DO - Last Filed: 01/29/22 23:20> Lab Data Labs: Lab Results 01/27/22 01/27/22 01/27/22 Range/Units 11:18 11:30 11:30 WBC 6.0 (4.5-11.0) X10^3/uL RBC 3.61 L (4.0-5.2) X10^6/uL Hgb 11.5 L (12.0-16.0) g/dL Hct 35.1 L (36-46) % MCV 97.2 (80-100) fL MCH 32.0 (26-34) PG MCHC 32.9 (30-36) % RDW 18.5 H (11.6-14.8) % Plt Count 157 (150-400) X10^3/uL Neut % (Auto) 93.7 H (50-75) % Lymph % (Auto) 4.5 L (25-40) % Freestone % (Auto) 1.6 L (3-14) % Eos % (Auto) 0.1 L (2-4) % Baso % (Auto) 0.1 (0-2) % Neut # (Auto) 5600 (9406-9306) /uL Lymph # (Auto) 300 L (4226-7454) /uL Freestone # (Auto) 100 (0-900) /uL Eos # (Auto) 0 (0-450) /uL Baso # (Auto) 0 (0-100) /uL Sodium 136 L (137-145) mmol/L Potassium 4.6 (3.4-5.1) mmol/L Chloride 92 L (98-107) mmol/L Carbon Dioxide 29 (22-32) mmol/L BUN 21 H (7-17) mg/dL Creatinine 3.75 H (0.52-1.04) mg/dL Estimated GFR 11 L (>60) mL/min BUN/Creatinine Ratio 5.6 L (6-22) Glucose 229 H (80-110) mg/dL Calcium 8.3 L (8.4-10.2) mg/dL Total Bilirubin 1.3 (0.2-1.3) mg/dL AST 29 (14-36) IU/L ALT 22 (<35) IU/L Alkaline Phosphatase 128 H (38-126) U/L Total Protein 6.9 (6.3-8.2) g/dL Albumin 3.7 (3.5-5.0) g/dL Globulin 3.2 (1.7-4.1) g/dL Albumin/Globulin Ratio 1.2 (1.0-2.8) SARS-CoV-2 (PCR) Negative (Negative) 01/28/22 01/28/22 01/29/22 Range/Units 18:40 18:40 14:31 WBC 8.0 (4.5-11.0) X10^3/uL RBC 2.90 L (4.0-5.2) X10^6/uL Hgb 9.6 L (12.0-16.0) g/dL Hct 27.8 L (36-46) % MCV 95.7 (80-100) fL MCH 33.0 (26-34) PG MCHC 34.5 (30-36) % RDW 18.8 H (11.6-14.8) % Plt Count 146 L (150-400) X10^3/uL Neut % (Auto) 80.5 H (50-75) % Lymph % (Auto) 8.1 L (25-40) % Freestone % (Auto) 10.6 (3-14) % Eos % (Auto) 0.4 L (2-4) % Baso % (Auto) 0.4 (0-2) % Neut # (Auto) 6400 (3599-2731) /uL Lymph # (Auto) 600 L (1458-4900) /uL Freestone # (Auto) 800 (0-900) /uL Eos # (Auto) 0 (0-450) /uL Baso # (Auto) 0 (0-100) /uL Sodium 139 (137-145) mmol/L Potassium 3.4 D (3.4-5.1) mmol/L Chloride 95 L (98-107) mmol/L Carbon Dioxide 36 H (22-32) mmol/L BUN 16 (7-17) mg/dL Creatinine 2.44 H (0.52-1.04) mg/dL Estimated GFR 19 L (>60) mL/min BUN/Creatinine Ratio 6.6 (6-22) Glucose 221 H (80-110) mg/dL Calcium 7.9 L (8.4-10.2) mg/dL Total Bilirubin 1.0 (0.2-1.3) mg/dL AST 21 (14-36) IU/L ALT 19 (<35) IU/L Alkaline Phosphatase 100 (38-126) U/L Total Protein 6.1 L (6.3-8.2) g/dL Albumin 3.2 L (3.5-5.0) g/dL Globulin 2.9 (1.7-4.1) g/dL Albumin/Globulin Ratio 1.1 (1.0-2.8) SARS-CoV-2 (PCR) Negative (Negative) MDM Narrative Medical decision making narrative: [phone] - [place] [facility] [place] [facility], [place] and patient on list, no current beds. Other local facilities not accepting patients. These facilities request call back after 0900 <Zion Simon DO - Last Filed: 01/28/22 18:59> Lab Data Labs: Lab Results 01/27/22 01/27/22 01/27/22 Range/Units 11:18 11:30 11:30 WBC 6.0 (4.5-11.0) X10^3/uL RBC 3.61 L (4.0-5.2) X10^6/uL Hgb 11.5 L (12.0-16.0) g/dL Hct 35.1 L (36-46) % MCV 97.2 (80-100) fL MCH 32.0 (26-34) PG MCHC 32.9 (30-36) % RDW 18.5 H (11.6-14.8) % Plt Count 157 (150-400) X10^3/uL Neut % (Auto) 93.7 H (50-75) % Lymph % (Auto) 4.5 L (25-40) % Freestone % (Auto) 1.6 L (3-14) % Eos % (Auto) 0.1 L (2-4) % Baso % (Auto) 0.1 (0-2) % Neut # (Auto) 5600 (7247-1329) /uL Lymph # (Auto) 300 L (5071-7346) /uL Freestone # (Auto) 100 (0-900) /uL Eos # (Auto) 0 (0-450) /uL Baso # (Auto) 0 (0-100) /uL Sodium 136 L (137-145) mmol/L Potassium 4.6 (3.4-5.1) mmol/L Chloride 92 L (98-107) mmol/L Carbon Dioxide 29 (22-32) mmol/L BUN 21 H (7-17) mg/dL Creatinine 3.75 H (0.52-1.04) mg/dL Estimated GFR 11 L (>60) mL/min BUN/Creatinine Ratio 5.6 L (6-22) Glucose 229 H (80-110) mg/dL Calcium 8.3 L (8.4-10.2) mg/dL Total Bilirubin 1.3 (0.2-1.3) mg/dL AST 29 (14-36) IU/L ALT 22 (<35) IU/L Alkaline Phosphatase 128 H (38-126) U/L Total Protein 6.9 (6.3-8.2) g/dL Albumin 3.7 (3.5-5.0) g/dL Globulin 3.2 (1.7-4.1) g/dL Albumin/Globulin Ratio 1.2 (1.0-2.8) SARS-CoV-2 (PCR) Negative (Negative) 01/28/22 01/28/22 01/29/22 Range/Units 18:40 18:40 14:31 WBC 8.0 (4.5-11.0) X10^3/uL RBC 2.90 L (4.0-5.2) X10^6/uL Hgb 9.6 L (12.0-16.0) g/dL Hct 27.8 L (36-46) % MCV 95.7 (80-100) fL MCH 33.0 (26-34) PG MCHC 34.5 (30-36) % RDW 18.8 H (11.6-14.8) % Plt Count 146 L (150-400) X10^3/uL Neut % (Auto) 80.5 H (50-75) % Lymph % (Auto) 8.1 L (25-40) % Freestone % (Auto) 10.6 (3-14) % Eos % (Auto) 0.4 L (2-4) % Baso % (Auto) 0.4 (0-2) % Neut # (Auto) 6400 (0903-8008) /uL Lymph # (Auto) 600 L (1222-2365) /uL Freestone # (Auto) 800 (0-900) /uL Eos # (Auto) 0 (0-450) /uL Baso # (Auto) 0 (0-100) /uL Sodium 139 (137-145) mmol/L Potassium 3.4 D (3.4-5.1) mmol/L Chloride 95 L (98-107) mmol/L Carbon Dioxide 36 H (22-32) mmol/L BUN 16 (7-17) mg/dL Creatinine 2.44 H (0.52-1.04) mg/dL Estimated GFR 19 L (>60) mL/min BUN/Creatinine Ratio 6.6 (6-22) Glucose 221 H (80-110) mg/dL Calcium 7.9 L (8.4-10.2) mg/dL Total Bilirubin 1.0 (0.2-1.3) mg/dL AST 21 (14-36) IU/L ALT 19 (<35) IU/L Alkaline Phosphatase 100 (38-126) U/L Total Protein 6.1 L (6.3-8.2) g/dL Albumin 3.2 L (3.5-5.0) g/dL Globulin 2.9 (1.7-4.1) g/dL Albumin/Globulin Ratio 1.1 (1.0-2.8) SARS-CoV-2 (PCR) Negative (Negative) MDM Narrative Medical decision making narrative: 0645 - [place] [facility] [place], , [place] and patient on list, no current beds. Other local facilities not accepting patients. These facilities request call back af ter [phone] Dr Simon: Received turned over. I feel patient's history and physical. Reviewed patient's radiologic studies. Performed my own independent exam. Patient has non operative pubic rami fractures. Pain seems to been controlled with medications. Has been seen by social work. We have been attempting to find placement for patient because of her dialysis need and most likely for need for sniff placement. Patient was scheduled to have dialysis today. It is Monday and given the low likelihood of placement to another hospital I felt that transferring her by BLS to have her scheduled dialysis that return to the emergency department would be the best option for her. This was done without issue. Care turned over to Dr. Alves. Will have social work and physical therapy see her again tomorrow. Patient is stable. <Reza Chawla MD - Last Filed: 01/29/22 13:45> Lab Data Labs: Lab Results 01/27/22 01/27/22 01/27/22 Range/Units 11:18 11:30 11:30 WBC 6.0 (4.5-11.0) X10^3/uL RBC 3.61 L (4.0-5.2) X10^6/uL Hgb 11.5 L (12.0-16.0) g/dL Hct 35.1 L (36-46) % MCV 97.2 (80-100) fL MCH 32.0 (26-34) PG MCHC 32.9 (30-36) % RDW 18.5 H (11.6-14.8) % Plt Count 157 (150-400) X10^3/uL Neut % (Auto) 93.7 H (50-75) % Lymph % (Auto) 4.5 L (25-40) % Freestone % (Auto) 1.6 L (3-14) % Eos % (Auto) 0.1 L (2-4) % Baso % (Auto) 0.1 (0-2) % Neut # (Auto) 5600 (4603-8966) /uL Lymph # (Auto) 300 L (7969-3733) /uL Freestone # (Auto) 100 (0-900) /uL Eos # (Auto) 0 (0-450) /uL Baso # (Auto) 0 (0-100) /uL Sodium 136 L (137-145) mmol/L Potassium 4.6 (3.4-5.1) mmol/L Chloride 92 L (98-107) mmol/L Carbon Dioxide 29 (22-32) mmol/L BUN 21 H (7-17) mg/dL Creatinine 3.75 H (0.52-1.04) mg/dL Estimated GFR 11 L (>60) mL/min BUN/Creatinine Ratio 5.6 L (6-22) Glucose 229 H (80-110) mg/dL Calcium 8.3 L (8.4-10.2) mg/dL Total Bilirubin 1.3 (0.2-1.3) mg/dL AST 29 (14-36) IU/L ALT 22 (<35) IU/L Alkaline Phosphatase 128 H (38-126) U/L Total Protein 6.9 (6.3-8.2) g/dL Albumin 3.7 (3.5-5.0) g/dL Globulin 3.2 (1.7-4.1) g/dL Albumin/Globulin Ratio 1.2 (1.0-2.8) SARS-CoV-2 (PCR) Negative (Negative) 01/28/22 01/28/22 01/29/22 Range/Units 18:40 18:40 14:31 WBC 8.0 (4.5-11.0) X10^3/uL RBC 2.90 L (4.0-5.2) X10^6/uL Hgb 9.6 L (12.0-16.0) g/dL Hct 27.8 L (36-46) % MCV 95.7 (80-100) fL MCH 33.0 (26-34) PG MCHC 34.5 (30-36) % RDW 18.8 H (11.6-14.8) % Plt Count 146 L (150-400) X10^3/uL Neut % (Auto) 80.5 H (50-75) % Lymph % (Auto) 8.1 L (25-40) % Freestone % (Auto) 10.6 (3-14) % Eos % (Auto) 0.4 L (2-4) % Baso % (Auto) 0.4 (0-2) % Neut # (Auto) 6400 (7115-8333) /uL Lymph # (Auto) 600 L (5155-7324) /uL Freestone # (Auto) 800 (0-900) /uL Eos # (Auto) 0 (0-450) /uL Baso # (Auto) 0 (0-100) /uL Sodium 139 (137-145) mmol/L Potassium 3.4 D (3.4-5.1) mmol/L Chloride 95 L (98-107) mmol/L Carbon Dioxide 36 H (22-32) mmol/L BUN 16 (7-17) mg/dL Creatinine 2.44 H (0.52-1.04) mg/dL Estimated GFR 19 L (>60) mL/min BUN/Creatinine Ratio 6.6 (6-22) Glucose 221 H (80-110) mg/dL Calcium 7.9 L (8.4-10.2) mg/dL Total Bilirubin 1.0 (0.2-1.3) mg/dL AST 21 (14-36) IU/L ALT 19 (<35) IU/L Alkaline Phosphatase 100 (38-126) U/L Total Protein 6.1 L (6.3-8.2) g/dL Albumin 3.2 L (3.5-5.0) g/dL Globulin 2.9 (1.7-4.1) g/dL Albumin/Globulin Ratio 1.1 (1.0-2.8) SARS-CoV-2 (PCR) Negative (Negative) Discharge Plan Departure Patient Disposition: Admitted As Inpatient Clinical Impression: Closed displaced fracture of pelvis, Renal failure, Diabetes Admit Date/Time: 01/30/22 09:50 Admit Provider: David Sanchez
--- NOTE | 2022-01-27 11:51 | PC.NURSE ---
pt vitals stable prior to ct imaging, pt has only one arm and we are attempting to place us guided iv. will repeat vitals on left arm after, cannot use right arm for bp or iv sticks secondary to fistula for dialysis.
[2022-01-27 12:01] LABS: Add Manual Diff / Slide Review NO; Basophils Absolute Auto 0 /uL (0-100); Basophils Percent Auto 0.1 % (0-2); Eosinophils Absolute Auto 0 /uL (0-450); Eosinophils Percent Auto 0.1 % (2-4); Hematocrit 35.1 % (36-46); Hemoglobin 11.5 g/dL (12.0-16.0); Lymphocytes Absolute Auto 300 /uL (1100-4500); Lymphocytes Percent Auto 4.5 % (25-40); Mean Corpuscular HGB Conc 32.9 % (30-36); Mean Corpuscular Volume 97.2 fL (80-100); Monocytes Absolute Auto 100 /uL (0-900); Monocytes Percent Auto 1.6 % (3-14); Neutrophils Absolute Auto 5600 /uL (1500-7000); Neutrophils Percent Auto 93.7 % (50-75); Platelet Count 157 X10^3/uL (150-400); Red Blood Cell Count 3.61 X10^6/uL (4.0-5.2); Red Cell Distribution Width 18.5 % (11.6-14.8)
[2022-01-27 12:07] LABS: Alanine Aminotransferase 22 IU/L (<35); Albumin 3.7 g/dL (3.5-5.0); Albumin Globulin Ratio 1.2 (1.0-2.8); Alkaline Phosphatase 128 U/L (38-126); Aspartate Aminotransferase 29 IU/L (14-36); BUN Creatinine Ratio 5.6 (6-22); Bilirubin Total 1.3 mg/dL (0.2-1.3); Blood Urea Nitrogen 21 mg/dL (7-17); Calcium 8.3 mg/dL (8.4-10.2); Carbon Dioxide 29 mmol/L (22-32); Chloride 92 mmol/L (98-107); Estimated Glomerular Filt Rate 11 mL/min (>60); Globulin 3.2 g/dL (1.7-4.1); Glucose 229 mg/dL (80-110); HEMOLYSIS < 15 (0-50); Potassium 4.6 mmol/L (3.4-5.1); Sodium 136 mmol/L (137-145); Total Protein 6.9 g/dL (6.3-8.2)
[2022-01-27] MEDS: ONDANSETRON 4 MG/2 ML INJ IV (12:24)
[2022-01-27] MEDS: ACETAMINOPHEN 325 MG TABLET 975 MG PO (12:24)
--- NOTE | 2022-01-27 13:20 | CM.IDA ---
DCP Assessment Note Patient is 86 y/o female who presents to ED after GLF fall today, it was reported that patient was using her FWW and it got caught on the doorway. Patient's PCP is Alta Hannah, patient has Medicare and [employer] insurance. Patient has hx of Diabetes, Hypoplasia of one kidney, and patient receives dialysis. Patient has dyalysis on Mondays, Wednesdays and Fridays at [facility] Per Xray and CT scan in the ED, patient presents with Comminuted minimally displaced superior inferior left pubic rami fractures, L5 compression fracture and associated pelvic hematoma. WAX COATING MACHINE TENDER enters room to meet with patient, present in room is patient's friend Jackelin who reports to be patient's DPOA. Patient is DNR comfort measures. ED provider Dr. Ellis has consulted with orthopedics and it is reported that patient is nonsurgical. Patient to be consulted by PT. Patient will need possible transfer to another hospital for dialysis or SNF rehab with access to dialysis. Patient presents as A/Ox3. Patient endorses that she has been fairly independent at baseline with ADLs, uses a FWW. Patient resides at [facility] in [place]. Patient reports that she goes to meals in the dining paez, receives assistance with showers twice a week, is independent with toileting at baseline and receives assistance with cleaning. Patient endorses recent arm fracture in November 2021 that limited her independence as well. Patient endorses concern with ADLs and accessing dialysis due to new pelvic fracture. Patient has friends nearby as supports, patient reports her son resides in [place]. Patient endorses preference for transfer to another hospital rather than transfer to SNF rehab facility. WAX COATING MACHINE TENDER endorses that both searches will take place. At the end of the conversation, patient presents as tearful and starts to question if she should stop dialysis and pursue comfort care. WAX COATING MACHINE TENDER allows patient and friend to discuss this further with eachother, WAX COATING MACHINE TENDER informs ED provider. PT evaluates patient and patient is able to stand but in too much pain to transfer. BOX FABRICATOR calls hospitals that provide Dialysis for possible transfer. SNF rehab search: WAX COATING MACHINE TENDER calls [facility] and leaves , Admission has access to EMR. WAX COATING MACHINE TENDER calls [facility], it is reported that they can review patient and should have availability in the next few days, WAX COATING MACHINE TENDER faxes referral for review. WAX COATING MACHINE TENDER calls [facility], it is reported they can review patient but it would need to be a shared room if accepted, WAX COATING MACHINE TENDER faxes referral for review. WAX COATING MACHINE TENDER calls [facility] and leaves requesting return call. WAX COATING MACHINE TENDER calls [facility] and leaves requesting return call. Plan: Continue to seek SNF rehab for patient and possible transfer to another hospital. JARED Portillo Discharge Planning/Care Management CM Discharge Assessment Start: 01/27/22 13:03 Freq: Status: Active Protocol: Document 01/27/22 13:03 LN (Rec: 01/27/22 13:09 LN [id number]) Discharge Planning Assessment Assigned Radio Script Writer JARED Mas DPOA/Assigned Designee Name Jackelin Gambel / Friend Advance Directives? Yes Advance Directives on File No History Provided By Patient,Friend,Medical Record Has Patient been admitted in last 30 No days? Prior Living Arrangements Assisted Living Household Members none Type of transporation used prior to Public Transportation admit Comment Patient uses paratrant Facility Name Admitted From: [facility] Independent with ADL's At baseline patient is fairly independent at [facility] Is patient alert and oriented? Yes Needs Assistance With Bathing,Meal Prep,Home Chores / Shopping Comment Patient receives Dialysis 3 days a week (Mondays, Wednesdays and Fridays) DME Already Rented / Owned FWW / Walker Comment Transfer vs. SNF rehab with dialysis. Please Provide Date Initial DC 01/27/22 Assessment Was Performed
--- NOTE | 2022-01-27 13:34 | PT.IIE ---
Physical Therapy Inpatient Evaluation/Re-Eval M1 PT/OT-IP Prior Functional Status Start: 01/27/22 12:25 Freq: Status: Active Protocol: Document 01/27/22 13:34 AW (Rec: 01/27/22 14:11 AW [id number]) Medical Review Prior Functional Status Medical History Reviewed Yes Communication WNL. Pt is an effective verbal communicator. Mobility and Gait Abiola ambulates facility distances modified independent with 4WW. She uses her 4WW when going to cardiac rehab and to dialysis appointments. She is independent with bed mobility. She occasionally needs assist getting up from the toilet. Activities of Daily Living and IADL's Pt broke her right wrist in November (currently lacks extension and radial deviation ). She also has a right AV fistula for dialysis which complicates her ADL's. She has been getting assist with dressing and showering tasks at her [facility]. As stated above, she also sometimes needs assist with toilet transfers. Prior Functional Level (Other details) Pt goes to outpatient dialysis on MWF. She is active with cardiac rehab. Social History Household Members none Living Arrangements Assisted Living Number of Stairs To Enter/Railing? No stairs. Home Environment High Toilet,Walk in Shower, Built-In Shower Seat Home Equipment Four Wheel Walker,Grab Bars Near Toilet,Grab Bars In Shower Employment Status Retired Additional Social History Comment Pt lives at [facility] in [place]. M2 PT-IP Current Condition Start: 01/27/22 12:25 Freq: Status: Active Protocol: Document 01/27/22 13:34 AW (Rec: 01/27/22 14:11 AW [id number]) Physical Therapy Current Condition Current Condition Evaluation Date 01/27/22 Treatment Diagnosis GLF; pubic rami fractures; impaired mobility Onset Date 01/27/22 M3 PT-IP Subjective Start: 01/27/22 12:25 Freq: Status: Active Protocol: Document 01/27/22 13:34 AW (Rec: 01/27/22 14:11 AW [id number]) Subjective Physical Therapy Visit Type Type Initial Evaluation Visit Start Time 12:59 Visit Stop Time 13:34 Total Visit Minutes 35 Notes Pt's friend was present throughout this assessment. PT spoke with ED provider who stated ortho cleared pt to be WBAT. Physical Therapy Visit Comments Patient Comments Pt is worried about being able to continue dialysis appointments while rehabbing. Patient Goals Decrease pain, be able to walk . Therapy Pain Assessment Pain When Pain Assessed At Rest Pain Present Pain Present Pain Reported Location left groin Scale Used 10/10 at rest; unchanged with weightbearing Pain Management Techniques Modification of Treatment,Re- positioning M4 PT-IP Mobility and Gait Start: 01/27/22 12:25 Freq: Status: Active Protocol: Document 01/27/22 13:34 AW (Rec: 01/27/22 14:11 AW [id number]) PT-Bed Mobility Assessment Supine to Sit Supine to Sit Moderate Assistance,Maximum Assistance,1 Person Assistance Sit to Supine Sit to Supine Maximum Assistance,1 Person Assistance Scooting Scooting to Edge of Bed Moderate Assistance PT-Transfer Assessment Sit to and From Stand Sit to and from Stand Moderate Assistance,1 Person Assistance,Use of Upper Extremities Equipment Transfer Assistive Device Gait Belt,Front Wheeled Walker Orthotic/Prosthetic Devices or Brace: No Comments Mobility Comments Pt was lying on the ED gurney as PT arrived. She complained of 10/10 pain at rest but did not appear distressed. BP was 106/74 HR 86 SpO2 96% on room air. Pt agreed to sit up EOB. She was able to move her right leg toward right side of the bed but needed assist to move the left leg. She was able to participate with scooting forward. Due to height of the ED gurney, pt was unable to get feet on the floor. She stood mod A with FWW and tolerated standing ~10 seconds before needing to sit. In standing, respiratory rate increased but pt responded well to cues to concentrate on her breathing. She stood again mod A with FWW and was able to shift weight laterally with heavy UE weightbearing when shifting toward the left. PT asked if pt could take small marching steps in place but pt could not proceed due to pain. She sat EOB another minute before needing to lie down in response to pain. Max A to elevate BLE to the bed and total assist x 2 to scoot up on the bed. Pt was left with call light in reach. Gait Assessment Comments Gait Comments Unable to bear weight for gait at this time. Pre-gait weight shifting was minimal and heavily dependent on UE's. PT-Balance Assessment Sitting Balance and Reactions Static Sitting Balance Ability Good Dynamic Sitting Balance Ability Fair Standing Balance and Reactions Static Standing Balance Ability Fair Dynamic Standing Balance Ability Poor Device Used FWW Balance Tests Single Limb Standing unable M5 PT-IP Objective Assessments Start: 01/27/22 12:25 Freq: Status: Active Protocol: Document 01/27/22 13:34 AW (Rec: 01/27/22 14:11 AW [id number]) Orientation Orientation/Cognition Level of Alertness Alert Orientation Name,Date,Place,Situation Language Function Ability No Deficits Noted Safety Awareness Understands Safety Issues Memory Description No Deficits Noted Gross Range of Motion Upper Extremity ROM Assessment Right Impaired Impairments Right wrist (with recent healed fracture) lacks extension and radial deviation . Lower Extremity ROM Assessment Within Functional Limits Impairments Pt tolerates active heel slides RLE and PROM LLE Strength Lower Extremity Strength Assessment Bilaterally Impaired Hip R 4/5; L 3-/5 Knee R 4/5; L 3+/5 Ankle R 4+/5 DF; L 4/5 DF; PF not tested Sensation Assessment Sensation Gross Sensation WNL Muscle Tone Muscle Tone WNL Yes M6 PT-IP Treatment Start: 01/27/22 12:25 Freq: Status: Active Protocol: Document 01/27/22 13:34 AW (Rec: 01/27/22 14:11 AW [id number]) Physical Therapy Treatment Education Education Provided Safety Other Treatments Other Treatment Performed Initiated discussion of discharge options to include SNF rehab with paratransit for dialysis. Pt was skeptical of her ability to tolerate sitting in a wheelchair but willing to consider all options. M7 PT-IP Assessment and Plan Start: 01/27/22 12:25 Freq: Status: Active Protocol: Document 01/27/22 13:34 AW (Rec: 01/27/22 14:11 AW [id number]) PT Summary Assessment and Plan Potential Rehabilitation Potential Good Status of Condition at Evaluation Evolving Summary Impairments Pain,ROM,Strength,Balance,Bed Mobility,Transfers,Gait Assessment Summary Abiola is an 86 yo woman evaluated in the ED following a ground level fall this AM. Imaging reveals acute comminuted minimally displaced superior and inferior pubic rami fractures along with likely-chronic L5 compression fracture. Pt had another fall in November of this year which resulted in right wrist fracture. PLOF: Pt resides at an [facility] and gets assist with ADL's at least in part due to reduced right wrist ROM following her fracture. She is modified independent with 4WW for facility distances. She has outpatient dialysis appointments MWF and also goes to cardiac rehab. CLOF: Pt needs mod/max assist for bed mobility and mod assist to stand from a tall ED gurney with FWW. Standing tolerance is poor - limited to 10 seconds with minimal ability to shift weight laterally with FWW. Pt refused transfer due to 10/10 pain. This PT believes pt may be able to tolerate transfer once better pain control has been achieved . PT recommending SNF level of rehab to improve strength and mobility independence for ultimate return to [facility]. Placement is likely to be complicated due to pt's need for hemodialysis but if she can tolerate transfer to wheelchair for paratransit, SNF is likely to be best option. Goals Bed Mobility Goal Minimal Assistance Transfer Goal Minimal Assistance,Front Wheeled Walker Gait Goal Minimal Assistance,Front Wheel Walker Gait Distance 25 Other Goals LTG: Improve bed mob to SBA; improve transfers and gait to CGA with FWW Days to Meet Goals 10 Frequency of Treatment Frequency Of Treatment Once a Day Treatment Plan Physical Therapy Treatment Plan Bed Mobility Training,Transfer Training,Gait Training, Therapeutic Exercise,Balance Retraining,Discharge Planning, Hot or Cold Pack,Neuromuscular Re-ed,Manual Therapy Other Recommendations and Next Treatment standing tolerance; transfers Focus (coordinate with nursing for pain mgmt) Weight Bearing Status Weight Bearing Status Weight Bear as Tolerated Allowed Weight Bearing Amount (enter % WBAT per ortho or #) (%) Recommendations To Nursing Amount of Assist Needed 2 Person Assist Discharge Recommendations PT Discharge Recommendations SNF Rehab Equipment Needed for Home Before FWW Discharge Transportation Needs at Discharge Wheelchair/Cabulance
[2022-01-27] MEDS: OXYCODONE/ACETAMINOPHEN 5/325 TABLET 1 TAB PO ×3 (13:46→21:12)
--- NOTE | 2022-01-27 14:53 | PC.NURSE ---
pt informed when pain medications help her to feel a little better, we would like to try and have her transfer to a chair. education on how this would help us determine the facility she needs to be placed in for care. pt verbalized understanding. when asked if the pain medications have helped her pain, she states maybe a little. but she does not feel like getting up and transferring to a chair currently, she is tired and would like to rest prior to moving around again.
--- NOTE | 2022-01-27 16:17 | PC.NURSE ---
pt attempted to transfer to chair after recieiving pain medications,pt was able to stand up to side of bed with no help (standby assist only) but pt states standing shoots her pain up to 10/10 and she feels like she is unable to move her right leg at all.
[2022-01-27] MEDS: ATORVASTATIN 20 MG TABLET 40 MG PO (21:12)
[2022-01-27] MEDS: GABAPENTIN 300 MG CAPSULE PO (21:13)
[2022-01-28] VITALS (30 sets, daily range): BP systolic 78–136; BP diastolic 40–69; PULSE 67–94; RESP 9–40; O2SAT 92–100
[2022-01-28] MEDS: OXYCODONE/ACETAMINOPHEN 5/325 TABLET 1 TAB PO ×5 (02:25→22:02)
--- NOTE | 2022-01-28 03:30 | PC.NURSE ---
pt able to stand beside the stretcher with walker for mian 15 sec thenc/o dizziness and was assisted back to the stretcher
--- NOTE | 2022-01-28 11:13 | PC.NURSE ---
pt requesting pain medication prior to transport to dialysis. okay to give early per Dr. Simon.
--- NOTE | 2022-01-28 11:24 | PT-IP ANOTE ---
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 will check back on pt tomorrow.
--- NOTE | 2022-01-28 12:03 | PC.NURSE ---
spoke with nurse at [facility]. pt left ed via BLS to [facility] at this time.
--- NOTE | 2022-01-28 18:25 | CM.DPC ---
Addendum entered by Tg Jeong 01/28/22 19:08: SOFTWARE SUPPORT REPRESENTATIVE reviews plan with patient who indicates understanding. Original Note: DCP Note SOFTWARE SUPPORT REPRESENTATIVE receives call from Joe and patient is declined due to concern for patient's ability to sit for dialysis. SOFTWARE SUPPORT REPRESENTATIVE receives call from Terra at [facility] rehab (Ph. # [phone]). It was reported that patient has been accepted to SNF under Medicare Covid waiver. It was requested that ED provider endorse that patient is being transferred from ED due to need to clear space in the ED for Covid patients. It was reported by Terra that patient will transport to dialysis via paratransit once admitted to facility. PT attempted to assess patient today but patient was en route via BLS to [facility] for dialysis. Patient was at dialysis most of the day. It is reported that patient's appointments are around 1330 every Monday, Monday and Fridays. Patient's DPOA and patient report concern for patient's pain level and discomfort sitting in a wheelchair to and from dialysis. Terra at [facility] spoke with patient and DPOA as well and agreed with concerns as patient may need more PT to be able to sit in wheelchair. Terra reports she will hold SNF rehab spot for patient and re-evaluate on Monday, with plans to accept patient when appropriate. SOFTWARE SUPPORT REPRESENTATIVE provides this information to [facility] oil burner repairer that will be present over the weekend. Patient to be evaluated by PT tomorrow and Monday. SOFTWARE SUPPORT REPRESENTATIVE started PASSR form. Plan: Patient to board in ED, continue to receive PT evaluation and treatment, f/u with [facility] on Monday for acceptance. JARED Portillo
[2022-01-28 18:56] LABS: Add Manual Diff / Slide Review NO; Basophils Absolute Auto 0 /uL (0-100); Basophils Percent Auto 0.4 % (0-2); Eosinophils Absolute Auto 0 /uL (0-450); Eosinophils Percent Auto 0.4 % (2-4); Hematocrit 27.8 % (36-46); Hemoglobin 9.6 g/dL (12.0-16.0); Lymphocytes Absolute Auto 600 /uL (1100-4500); Lymphocytes Percent Auto 8.1 % (25-40); Mean Corpuscular HGB Conc 34.5 % (30-36); Mean Corpuscular Volume 95.7 fL (80-100); Monocytes Absolute Auto 800 /uL (0-900); Monocytes Percent Auto 10.6 % (3-14); Neutrophils Absolute Auto 6400 /uL (1500-7000); Neutrophils Percent Auto 80.5 % (50-75); Platelet Count 146 X10^3/uL (150-400); Red Cell Distribution Width 18.8 % (11.6-14.8)
[2022-01-28 19:00] LABS: Alanine Aminotransferase 19 IU/L (<35); Albumin 3.2 g/dL (3.5-5.0); Albumin Globulin Ratio 1.1 (1.0-2.8); Alkaline Phosphatase 100 U/L (38-126); Aspartate Aminotransferase 21 IU/L (14-36); BUN Creatinine Ratio 6.6 (6-22); Blood Urea Nitrogen 16 mg/dL (7-17); Calcium 7.9 mg/dL (8.4-10.2); Carbon Dioxide 36 mmol/L (22-32); Chloride 95 mmol/L (98-107); Estimated Glomerular Filt Rate 19 mL/min (>60); Globulin 2.9 g/dL (1.7-4.1); Glucose 221 mg/dL (80-110); HEMOLYSIS < 15 (0-50); Potassium 3.4 mmol/L (3.4-5.1); Sodium 139 mmol/L (137-145); Total Protein 6.1 g/dL (6.3-8.2)
[2022-01-28] MEDS: GABAPENTIN 300 MG CAPSULE PO (21:51)
[2022-01-29] VITALS (14 sets, daily range): BP systolic 92–152; BP diastolic 43–87; PULSE 92–110; RESP 18; TEMP 36.7; O2SAT 89–100; BMI 30.8
--- NOTE | 2022-01-29 00:55 | PC.NURSE ---
Patient was able to stand and pivot with 2 person assist to bedside commode and sit on successfully
--- NOTE | 2022-01-29 03:24 | PC.NURSE ---
pt up to the bsc for the second time able to get up with some assistance and sit on the bsc
--- NOTE | 2022-01-29 03:41 | PC.NURSE ---
pt sat on bsc for mian 10 min, pt became very tearful stating she just wanted to , pt not attempting to assist in returning to the stretcher, pt was informed she needed to help to get better pt stated I don't want to pt asked what would happen if she could not do rehab, pt continues to state how she just wants to give up. attempted to explain to pt that she needed to work at getting better. pt stated again I don't want to I just want to lay here and
--- NOTE | 2022-01-29 03:49 | PC.NURSE ---
SITE DIRECTOR/ROCÍO note: while getting patient up with RN Janeen, patient was very hard to move. She expected staff to help her move. I lifted patient into the bed from the edge of the bed. We told patient that she needs to move her herself. I don't want to. I want to . Patient repeated this multiple times. Staff attempted to reassure patient. When I came back after cleaning her BSC, patient asked what time do you get off? 7? 7:30. You won't be here, but my son and daughter can tell you I can here. I explained that right now we don't talk about that, at 0340 in the morning. You should get some sleep. I let the RN and doctor know about the conversation.
--- NOTE | 2022-01-29 03:50 | PC.NURSE ---
Dr Alves notified of pt's statements
[2022-01-29] MEDS: ONDANSETRON 4 MG/2 ML INJ IV (08:40)
[2022-01-29] MEDS: OXYCODONE/ACETAMINOPHEN 5/325 TABLET 1 TAB PO ×2 (08:41→14:44)
--- NOTE | 2022-01-29 11:05 | PT.IPTN ---
Physical Therapy Treatment Note M2 PT-IP Current Condition Start: 01/27/22 12:25 Freq: Status: Active Protocol: Document 01/27/22 13:34 AW (Rec: 01/27/22 14:11 AW [id number]) Physical Therapy Current Condition Current Condition Evaluation Date 01/27/22 Treatment Diagnosis GLF; pubic rami fractures; impaired mobility Onset Date 01/27/22 M3 PT-IP Subjective Start: 01/27/22 12:25 Freq: Status: Active Protocol: Document 01/29/22 11:05 AB (Rec: 01/29/22 12:22 AB [id number]) Subjective Physical Therapy Visit Type Type Treatment Note Visit Start Time 11:05 Visit Stop Time 11:21 Total Visit Minutes 16 Number of TRUCK WASHER Visits 0 Physical Therapy Visit Comments Patient Comments agreed to do PT Therapy Pain Assessment Pain When Pain Assessed At Rest Pain Present Pain Present Pain Reported Location left groin Intensity 9 Pain Behaviors Facial Grimacing,Guarding, Holding Area,Moaning,Wincing Pain Management Techniques Distraction,Modification of Treatment,Re-positioning, Timing of Activity with Medications M4 PT-IP Mobility and Gait Start: 01/27/22 12:25 Freq: Status: Active Protocol: Document 01/29/22 11:05 AB (Rec: 01/29/22 12:22 AB [id number]) PT-Bed Mobility Assessment Supine to Sit Supine to Sit Maximum Assistance,1 Person Assistance,2 Person Assistance ,Head of Bed Elevated Sit to Supine Sit to Supine Total Assistance,2 Person Assistance Scooting Scooting to Edge of Bed Dependent Scooting Up and Down in Bed Dependent PT-Transfer Assessment Comments Mobility Comments completed supine to sit HOB elevated max A x 1-2 and max cues. increase posterior trunk lean in sitting requiring max A for sitting balance on EOB. NAC came in to assist. completed sit to stand max A x 2 and max cues but pt unable to tolerate standing using FWW despite max A x 2 provided and has to sit back down. tolerated ~ 5 sec of standing. Pt stated that she is sliding off the bed. Total A for positioning back to EOB. pt requested to lay back in bed. c/o increase L groin pain. required total A x 2 for sit to supine and positioning in bed. call light and table placed within reach. PT-Balance Assessment Sitting Balance and Reactions Static Sitting Balance Ability Poor Dynamic Sitting Balance Ability Poor Standing Balance and Reactions Static Standing Balance Ability Poor Dynamic Standing Balance Ability Poor M5 PT-IP Objective Assessments Start: 01/27/22 12:25 Freq: Status: Active Protocol: Document 01/27/22 13:34 AW (Rec: 01/27/22 14:11 AW [id number]) Orientation Orientation/Cognition Level of Alertness Alert Orientation Name,Date,Place,Situation Language Function Ability No Deficits Noted Safety Awareness Understands Safety Issues Memory Description No Deficits Noted Gross Range of Motion Upper Extremity ROM Assessment Right Impaired Impairments Right wrist (with recent healed fracture) lacks extension and radial deviation . Lower Extremity ROM Assessment Within Functional Limits Impairments Pt tolerates active heel slides RLE and PROM LLE Strength Lower Extremity Strength Assessment Bilaterally Impaired Hip R 4/5; L 3-/5 Knee R 4/5; L 3+/5 Ankle R 4+/5 DF; L 4/5 DF; PF not tested Sensation Assessment Sensation Gross Sensation WNL Muscle Tone Muscle Tone WNL Yes M6 PT-IP Treatment Start: 01/27/22 12:25 Freq: Status: Active Protocol: Document 01/29/22 11:05 AB (Rec: 01/29/22 12:22 AB [id number]) Physical Therapy Treatment Education Education Provided Safety M7 PT-IP Assessment and Plan Start: 01/27/22 12:25 Freq: Status: Active Protocol: Document 01/29/22 11:05 AB (Rec: 01/29/22 12:22 AB [id number]) PT Summary Assessment and Plan Potential Rehabilitation Potential Fair Summary Impairments Pain,ROM,Strength,Balance, Coordination,Sensation,Tone, Cognition,Bed Mobility, Transfers,Gait,Activity Tolerance Assessment Summary pt requiring max A x 2 to total A x 2 with mobility and unable to tolerate much activity with c/o increase L groing pain. Pt will require SNF rehab to improve mobility. Goals Bed Mobility Goal Minimal Assistance Transfer Goal Minimal Assistance,Front Wheeled Walker Gait Goal Minimal Assistance,Front Wheel Walker Gait Distance 25 Other Goals LTG: Improve bed mob to SBA; improve transfers and gait to CGA with FWW Days to Meet Goals 10 Frequency of Treatment Frequency Of Treatment Once a Day Treatment Plan Physical Therapy Treatment Plan Bed Mobility Training,Transfer Training,Gait Training, Therapeutic Exercise,Balance Retraining,Discharge Planning, Hot or Cold Pack,Neuromuscular Re-ed,Manual Therapy Weight Bearing Status Weight Bearing Status Weight Bear as Tolerated Allowed Weight Bearing Amount (enter % WBAT per ortho or #) (%) Recommendations To Nursing Amount of Assist Needed Mechanical Lift Discharge Recommendations PT Discharge Recommendations SNF Rehab Equipment Needed for Home Before FWW Discharge Transportation Needs at Discharge Wheelchair/Cabulance
--- NOTE | 2022-01-29 13:00 | PC.NURSE ---
Pt laying in bed aaox3/3, breathing even and unlabored with 2L NC. Pt speaking quietly and slow to answer. Pt unable to lift bilateral lower extremities, describes increased pain with movement. Bilateral dorsalis pedis pulses palpable. Pt warm and dry. Abdominal discomfort with palpitation, per report pt had bowel movement this morning and was x2 assist upon standing.
--- NOTE | 2022-01-29 13:49 | PT-IP ANOTE ---
per immigration case worker: pt will be going under hospice care and not PT intervention needed. will d/c PT
--- NOTE | 2022-01-29 13:51 | PT.IPTN ---
Physical Therapy Treatment Note M2 PT-IP Current Condition Start: 01/27/22 12:25 Freq: Status: Active Protocol: Document 01/27/22 13:34 AW (Rec: 01/27/22 14:11 AW [id number]) Physical Therapy Current Condition Current Condition Evaluation Date 01/27/22 Treatment Diagnosis GLF; pubic rami fractures; impaired mobility Onset Date 01/27/22 M3 PT-IP Subjective Start: 01/27/22 12:25 Freq: Status: Active Protocol: Document 01/29/22 13:51 AB (Rec: 01/29/22 13:51 AB [id number]) Subjective Physical Therapy Visit Type Type Administrative Note Notes per rn field case manager: pt will be going under hospice care and not PT intervention needed. will d/c PT M7 PT-IP Assessment and Plan Start: 01/27/22 12:25 Freq: Status: Active Protocol: Document 01/29/22 13:51 AB (Rec: 01/29/22 13:51 AB [id number]) PT Summary Assessment and Plan Frequency of Treatment Frequency Of Treatment Discharge
--- NOTE | 2022-01-29 14:22 | CM.DPNOTE ---
DCP Note Working closely throughout the morning with patient's friend and DPOA Jackelin, son Richardson ([facility] [facility]) and Terra, client coordinator at [facility] Initially, family felt strongly that patient should be discharged to [facility] from the ER today and argued that patient could tolerate sitting in a wheelchair if properly medicated- Relayed this to Terra at [facility] who explained she could accept patient today if this was the case, under COVID waiver for rehab. Conversation w/family, held in the ER waiting room, then turned to a discussion about patient's medical complications over the last 3 years, her expected trajectory and the likelihood that patient's rehab potential is poor. Friend Jackelin then shared that patient had told her she was ready to and Jackelin stated concern about patient's current quality of life Friend and son tearful, state patient's wishes need to be heard- so conversation was taken into patient's room Patient A+O, eyes closed for much of this conversation, however, patient opens eyes when asked, answers questions appropriately. When asked what patient is hopeful for today? Patient tells this TECHNICAL MAINTENANCE SPECIALIST and family I want to . Patient confirms for her friend and son that she would like to go home to [facility] if she is able w/hospice; gave an overview of what a comfort pathway would be at this time; focusing on comfort measures and pain management, and stopping dialysis treatment. Patient and family agree and state understanding Discussed w/ Dr Chawla and Dr Sanchez who both discussed plan w/patient/family Patient being admitted for comfort management with hopes that she can discharge back to [facility] as soon as possible with Hospice service in place Placed call to [facility] and spoke w/addiction treatment counselor RN; faxed referral. RN doesn't have scheduling information today, requests team call Teresa Monday morning to discuss getting patient on schedule. This TECHNICAL MAINTENANCE SPECIALIST unable to attempt contact w/staff at [facility] today; patient will need aggressive pain and sx management if DC back to her [facility], so it's likely that hospice services will be required before patient can return to her [facility] apt at [facility] team following for support and coordination of DCP RAJINDER Campos
[2022-01-29 15:05] LABS: COVID19 -Nasal RAPID Negative (Negative)
--- NOTE | 2022-01-29 16:08 | PM.HP.1 ---
History of Present Illness History of Present Illness Date Patient Seen: 01/29/22 Time Patient Seen: 13:00 Chief complaint: GLF, left groin pain Narrative: Ms. Olvera is an 86W with PMH ESRD on HD who presents to the hospital after a fall at home. Apparently her walker bumped on a doorway and she fell on her left hip and had groin pain. She had no other injuries. She was unable to ambulate so came in to the hospital. Workup showed a superior and inferior left pubic ramus fracture with a pelvic hematoma and L5 compression fracture. She was not deemed to be a surgical candidate. There were initial attempts at placement or transfer to hospital due to continued needs for pain control and dialysis. This was unsuccessful for two days. Today she had discussion with her family and determined she no longer wanted dialysis or other treatment and wanted to be made comfort care. Discussion was had with social work and it was determined that hospice would be attempted to be arranged Monday, but could not be arranged over the . She was admitted for pain control and comfort care. PMH: ESRD on HD Social history: no smoking, EtOH use Family history: denies renal disease in family Patient History Family & Social History Social History: household members none Prior Living Arrangements Assisted Living Safety & Behavioral: Feels Safe in Current Yes Environment Been Physically Hurt or No Threatened By a Person Tobacco & Substance use: Substance Use Type does not use Meds Home Medications and Allergies Home Medications Medication Instructions Recorded Confirmed Type allopurinol 100 mg tablet 100 mg PO BEDTIME 09/10/18 01/28/22 History gabapentin 300 mg capsule 600 mg PO ONCE PM 09/10/18 01/27/22 History acetaminophen 500 mg tablet 1,000 mg PO Q8H PRN Pain (Scale 11/15/18 01/27/22 History (Tylenol Extra Strength) Score 1-3) nitroglycerin 0.4 mg sublingual 0.4 mg sublingual Q5-15M PRN Chest 11/15/18 01/27/22 History tablet Pain oxycodone 5 mg capsule 5 mg PO Q4H PRN Pain (Scale Score 11/15/18 01/27/22 History 4-6) aspirin 81 mg capsule 81 mg PO DAILY 01/27/22 01/27/22 History atorvastatin 40 mg tablet 40 mg PO QPM 01/27/22 01/27/22 History bisacodyl 10 mg rectal suppository 10 mg NE DAILY PRN Constipation 01/27/22 01/27/22 History cinacalcet 30 mg tablet 30 mg PO DAILY 01/27/22 01/27/22 History ferric citrate 210 mg iron tablet 210 mg PO BID 01/27/22 01/27/22 History fluticasone propionate 50 1 spray intranasal BID 01/27/22 01/27/22 History mcg/actuation nasal spray,suspension ibuprofen 400 mg tablet 400 mg PO TID PRN Pain (Scale 01/27/22 01/27/22 History Score 1-3) melatonin 3 mg tablet 3 mg PO BEDTIME PRN Sleep 01/27/22 01/27/22 History midodrine 5 mg tablet 5 mg PO DAILY 01/27/22 01/27/22 History multivit with 1 tab PO DAILY 01/27/22 01/27/22 History fnartzet-eaff-HW-lutein 8 mg iron-400 mcg-300 mcg tablet (Centrum Silver Women) ondansetron 4 mg disintegrating 4 mg PO Q6H PRN Nausea 01/27/22 01/27/22 History tablet polyethylene glycol 3350 17 gram 17 g PO DAILY 01/27/22 01/27/22 History oral powder packet (Miralax) sennosides 8.6 mg tablet (senna) 8.6 mg PO BID PRN Constipation 01/27/22 01/27/22 History gabapentin 300 mg capsule 600 mg PO BEDTIME 01/28/22 01/28/22 History Allergies Allergy/AdvReac Type Severity Reaction Status Date / Time amoxicillin Allergy Verified 01/27/22 10:47 codeine Allergy Verified 01/27/22 10:47 hydrocodone Allergy Verified 01/27/22 10:47 Sulfa (Sulfonamide Allergy Verified 01/27/22 10:47 Antibiotics) Review of Systems Review of Systems Narrative: 14 systems reviewed and negative aside from what is noted in HPI Exam Vital Signs (past 8 hours): - 01/29/22 08:27 01/29/22 08:28 01/29/22 08:28 Pulse Rate 108 H 107 H Blood Pressure 115/70 Pulse Oximetry 90 L 89 L 01/29/22 08:30 01/29/22 08:30 01/29/22 08:59 Pulse Rate 108 H 92 H Blood Pressure 101/56 L Pulse Oximetry 90 L 95 10/08/22 09:00 01/29/22 09:30 01/29/22 09:31 Pulse Rate 103 H 103 H Blood Pressure 107/72 Pulse Oximetry 97 96 01/29/22 09:31 01/29/22 10:00 01/29/22 10:00 Pulse Rate 104 H Blood Pressure 94/60 127/63 Pulse Oximetry 98 01/29/22 10:30 01/29/22 10:30 01/29/22 11:00 Pulse Rate 110 H 109 H Blood Pressure 123/87 Pulse Oximetry 99 100 01/29/22 11:01 01/29/22 11:01 Pulse Rate 109 H Blood Pressure 152/77 H Pulse Oximetry 100 Oxygen Delivery Method Room Air Narrative Exam Narrative: GEN: appears uncomfortable from pain HEENT: moist mucous membranes, PERRL NECK: trachea midline, no JVD CV: regular rate and rhythm, no murmurs PULM: clear bilaterally, no wheezes, rhonchi rales ABD: soft, nontender, nondistended, no organomegaly EXT: warm and well perfused with no edema NEURO: awake, alert, oriented, no focal deficits Objective Labs Result Diagrams: 01/28/22 18:40 01/28/22 18:40 Labs: Laboratory Results - last 24 hr 01/28/22 01/28/22 01/29/22 18:40 18:40 14:31 WBC 8.0 RBC 2.90 L Hgb 9.6 L Hct 27.8 L MCV 95.7 MCH 33.0 MCHC 34.5 RDW 18.8 H Plt Count 146 L Neut % (Auto) 80.5 H Lymph % (Auto) 8.1 L [place] % (Auto) 10.6 Eos % (Auto) 0.4 L Baso % (Auto) 0.4 Neut # (Auto) 6400 Lymph # (Auto) 600 L [place] # (Auto) 800 Eos # (Auto) 0 Baso # (Auto) 0 Sodium 139 Potassium 3.4 D Chloride 95 L Carbon Dioxide 36 H BUN 16 Creatinine 2.44 H Estimated GFR 19 L BUN/Creatinine Ratio 6.6 Glucose 221 H Calcium 7.9 L Total Bilirubin 1.0 AST 21 ALT 19 Alkaline Phosphatase 100 Total Protein 6.1 L Albumin 3.2 L Globulin 2.9 Albumin/Globulin Ratio 1.1 SARS-CoV-2 (PCR) Negative Assessment & Plan Assessment & Plan narrative: 1. ESRD on HD -she has determine she does not want further dialysis -she understands she will ultmately from stopping this treatmemnt 2. Pelvic fracture -no indication for surgery -continue pain control with oral and IV medications as needed Dispo: Patient was admitted to the hospital for comfort care given continued significant pain after fall. She has decided she does not want dialysis ever again and understand she will ultimately from stopping dialysis. She has discussed this with family, who are supportive of her. Arrangements for hospice are in process and will not be able to arranged until Monday at the earliest so patient is admitted for further comfort treatment. CODE: DNR/DNI, comfort care Proxy: Jackelin Teixeira, friend DODIE I have utilized all available resources to reconcile the patient's home medications. Time Spent With Patient Critical Care time: I spent a total of [] minutes of critical care time on this patient's care today; this time is exclusive of procedural time. Quality MIPS - Admit I confirm the patient?s Advance Care Plan is present, Code status is documented, Surrogate decision maker is in patient?s record [If Yes, STOP here]: Yes
[2022-01-30 03:24] VITALS: BP 91/42; PULSE 87; RESP 14; TEMP 36.4; O2SAT 94
[2022-01-30] MEDS: OXYCODONE IR 5 MG TABLET PO ×3 (03:28→19:17)
[2022-01-30 11:00] VITALS: BP 91/33; PULSE 99; RESP 16; TEMP 36.1; O2SAT 97
--- NOTE | 2022-01-30 11:15 | PM.PN.1 ---
Subjective Subjective Date Patient Seen: 01/30/22 Interval history: Continues to have pain and discomfort from her hip. Would like to return home as soon as possible. Exam Vital Signs (past 8 hours): - 01/30/22 03:24 Temperature 97.6 F Pulse Rate 87 Respiratory Rate 14 Blood Pressure 91/42 L Pulse Oximetry 94 Oxygen Flow Rate 2 Fraction of Inspired Oxygen 28 SaO2/FiO2 Ratio 350 Oxygen Delivery Method Nasal Cannula Oxygen Flow Rate 2 Narrative Exam Narrative: GEN: appears uncomfortable from pain HEENT: moist mucous membranes, PERRL NECK: trachea midline, no JVD CV: regular rate and rhythm, no murmurs PULM: clear bilaterally, no wheezes, rhonchi rales ABD: soft, nontender, nondistended, no organomegaly EXT: warm and well perfused with no edema NEURO: awake, alert, oriented, no focal deficits Objective Labs Result Diagrams: 01/28/22 18:40 01/28/22 18:40 Labs: Laboratory Results - last 24 hr 01/29/22 14:31 SARS-CoV-2 (PCR) Negative [facility] Social History household members: none Smoking Status: Never smoker alcohol intake: never Assessment & Plan Assessment & Plan narrative: 1. ESRD on HD -she has determined she does not want further dialysis -she understands she will ultmately from stopping this treatment 2. Pelvic fracture -no indication for surgery -continue pain control with oral and IV medications as needed. increased oral and added fentanyl patch today as pain remains uncontrolled. Dispo: Patient was admitted to the hospital for comfort care given continued significant pain after fall. She has decided she does not want dialysis ever again and understand she will ultimately from stopping dialysis. She has discussed this with family, who are supportive of her. Arrangements for hospice are in process and will not be able to arranged until Monday at the earliest so patient is admitted for further comfort treatment. CODE: DNR/DNI, comfort care Proxy: Jackelin Teixeira, friend DODIE I have utilized all available resources to reconcile the patient's home medications. Time Spent With Patient Critical Care time: I spent a total of [] minutes of critical care time on this patient's care today; this time is exclusive of procedural time. Quality VTE Deep Vein Thrombosis/Pulmonary Embolism Present on Admission: No
--- NOTE | 2022-01-30 11:23 | PC.NURSE ---
Addendum entered by Merly Macario R.N. 01/30/22 17:35: Patient given her gabapentin, and states that her pain is tolerable at a 5. Offered Oxycodone but wanted to try this before giving narcotics. Addendum entered by Merly Macario R.N. 01/30/22 14:18: Fentanyl 12mcg patch placed on patients r.chest. Given Oxycodone earlier and comfortable at this time. Original Note: Assess- Patient is alert and oriented 3, she is forgetful at times. Given po oxycodone for discomfort and helpful. Resting comfortably and watching television.
[2022-01-30] MEDS: fentaNYL 12 MCG/PATCH TOP (11:43)
[2022-01-30] MEDS: GABAPENTIN 300 MG CAPSULE 600 MG PO ×2 (17:04→21:08)
[2022-01-30 20:13] VITALS: PULSE 87; RESP 16; O2SAT 96
[2022-01-31] MEDS: OXYCODONE IR 5 MG TABLET 10 MG PO ×3 (05:31→18:29)
[2022-01-31 07:00] VITALS: BP 103/72; PULSE 84; RESP 20; TEMP 36.1; O2SAT 100
[2022-01-31 08:21] VITALS: O2SAT 100
[2022-01-31 08:32] VITALS: O2SAT 95
--- NOTE | 2022-01-31 11:59 | CM.DPNOTE ---
Called [facility] for BLS transport 02/01/22 at 1400 pickup. Told them pt. fiordaliza PATEL, contact prec. & lew. Indira Richards CM Assist.
--- NOTE | 2022-01-31 12:00 | PC.NURSE ---
Pt has perishable food items [facility] that are labeled and dated.
--- NOTE | 2022-01-31 13:18 | CM.DPC ---
DCP Cont Hospice Planning Per MD, pt seems to be well managed for pain and remains fairly stable. Per PT, they discontinued treatment but per last note from 2 days ago pt was not able to tolerate standing or transfers and mostly bed bound at this time due to pain and non-healed hip fx. RADHA called [facility] and spoke to Teresa who confirms they received the referral and have not yet contacted DPOA, son, pt yet but plan to today. They have pt on their schedule for this 02/02/22 at 1600. RADHA called Toan at [facility] and she confirms that DP had given them an update over the weekend and aware pt Comfort Care now. SW updated on when Hospice could open and only concern [facility] has is needing a hospital bed prior to discharge due to medical needs/pain. RADHA called [facility] and they can order DME to be delivered but will not happen until tomorrow before 1400 sometime. RADHA updated Toan at [facility] and she is willing to look in their storage if they have a hospital bed but likely do not and therefore agreeable with pt d/c tomorrow once hospital bed delivered and aware Hospice would open the next day. RADHA faxed clinicals to review to [facility] at fax [phone]. RADHA spoke to pt's friend/DPOA Jackelin Teixeira [phone] and updated on above and she confirms she is still in agreement along with son and pt on the plan of d/c. Jackelin plans to go to [facility] with son to remove pt's Gonzalez bed to prepare for hospital bed delivery tomorrow. Jackelin confirms that preference is BLS transport as pt cannot tolerate sitting or being in a wheelchair and aware insurance may not fully cover the full cost. RADHA completed the BLS form and attached POLST and facesheet and CC Indira kindly scheduled [facility] transport for 1400 tomorrow 02/01/22. RADHA updated Jackelin on time and she is agreeable. Plan: RADHA to follow in the AM to confirm estimated time of DME delivery for plan of d/c back to [facility] via [facility] at 1400 and [facility] to open the following day 02/02/22 at 1600. RADHA to fax d/c summary and signed med list to [facility] and [facility] at discharge. RAJINDER Gómez
--- NOTE | 2022-01-31 15:25 | PM.PN.1 ---
Subjective Subjective Date Patient Seen: 01/31/22 Interval history: Continues to have pain and discomfort from her hip. Would like to return home as soon as possible. Exam Vital Signs (past 8 hours): - 01/31/22 08:21 01/31/22 08:32 Pulse Oximetry 100 95 Oxygen Delivery Method Nasal Cannula Oxygen Flow Rate 2 0 Fraction of Inspired Oxygen 28 SaO2/FiO2 Ratio 342 Oxygen Delivery Method Nasal Cannula Oxygen Flow Rate 0 Narrative Exam Narrative: GEN: appears uncomfortable from pain HEENT: moist mucous membranes, PERRL NECK: trachea midline, no JVD CV: regular rate and rhythm, no murmurs PULM: clear bilaterally, no wheezes, rhonchi rales ABD: soft, nontender, nondistended, no organomegaly EXT: warm and well perfused with no edema NEURO: awake, alert, oriented, no focal deficits Objective Labs Result Diagrams: 01/28/22 18:40 01/28/22 18:40 [facility] Social History household members: none Smoking Status: Never smoker alcohol intake: never Assessment & Plan Assessment & Plan narrative: 1. ESRD on HD -she has determined she does not want further dialysis -she understands she will ultmately from stopping this treatment 2. Pelvic fracture -no indication for surgery -continue pain control with oral and IV medications as needed. Patients pain initially was not controlled on oral medications and she required IV for comfort. This has improved recently after likely some improved spasm, healing of her bone, and by remaining predominantly bed bound and increased oral and added fentanyl patch. Dispo: Patient was admitted to the hospital for comfort care given continued significant pain after fall. She has decided she does not want dialysis ever again and understand she will ultimately from stopping dialysis. She has discussed this with family, who are supportive of her. Arrangements for hospice are in process and she may be able to go home tomorrow once hospital bed delivered. CODE: DNR/DNI, comfort care Proxy: Jackelin Teixeira, friend DODIE I have utilized all available resources to reconcile the patient's home medications. Time Spent With Patient Critical Care time: I spent a total of [] minutes of critical care time on this patient's care today; this time is exclusive of procedural time. Quality VTE Deep Vein Thrombosis/Pulmonary Embolism Present on Admission: No
[2022-01-31] MEDS: GABAPENTIN 300 MG CAPSULE 600 MG PO ×2 (17:18→21:38)
[2022-01-31 19:50] VITALS: BP 147/79; PULSE 104; RESP 18; TEMP 36.3; O2SAT 94
[2022-02-01] MEDS: OXYCODONE IR 5 MG TABLET 10 MG PO (05:55)
[2022-02-01 07:00] VITALS: BP 116/81; PULSE 99; RESP 14; TEMP 35.9; O2SAT 97
[2022-02-01 07:30] VITALS: O2SAT 97
--- NOTE | 2022-02-01 10:17 | P.DS_ITS ---
History of Present Illness History of Present Illness Date Patient Seen: 02/01/22 Chief complaint: GLF, left groin pain Narrative: Per Dr. Sanchez, Ms. Olvera is an 86W with PMH ESRD on HD who presents to the hospital after a fall at home. Apparently her walker bumped on a doorway and she fell on her left hip and had groin pain. She had no other injuries. She was unable to ambulate so came in to the hospital. Workup showed a superior and inferior left pubic ramus fracture with a pelvic hematoma and L5 compression fracture. She was not deemed to be a surgical candidate. There were initial attempts at placement or transfer to hospital due to continued needs for pain control and dialysis. This was unsuccessful for two days. Today she had discussion with her family and determined she no longer wanted dialysis or other treatment and wanted to be made comfort care. Discussion was had with social work and it was determined that hospice would be attempted to be arranged Monday, but could not be arranged over the . She was admitted for pain control and comfort care. PMH: ESRD on HD Social history: no smoking, EtOH use Family history: denies renal disease in family Discharge Providers Provider Date of admission: 01/29/22 14:18 Discharge Date: 02/01/22 Primary care physician: REBEKAH Correa Consults: 01/27/22 11:55 Consult to [facility] [place] Stat Comment: Consult to Physical Therapy Evaluate & Treat Comment: left pelvic fracture Physician Instructions: Evaluate and Treat 01/29/22 16:28 Consult to Discharge Planning Routine Comment: Consult to Hospice Referral Urgent Comment: Discharge provider: Gurmeet Turner DO Summary Hospital Course Discharge Diagnosis: 1. ESRD on HD 2. Pelvic fracture with intractable pain Hospital Course: This is an 86 year old female with ESRD on HD who was admitted with uncontrolled pain from non-operative pelvic fracture after she decided to no longer continue hemodialysis and persue hospice. She initially required a significant amount of IV medication for pain control. With time her pain and discomfort improved, and increasing of oral pain medications and adding a fentanyl patch. Hospice is planned to open the day after discharge, and patient will be transported back to her assisted living after hospital bed arrives today. Pain medications were provided and many of her medications were discontinued on discharge to reflect new comfort goals. Time Spent with Patient Time spent: Greater than 30 minutes Exam Vital Signs (past 8 hours): - 02/01/22 07:00 Temperature 96.7 F L Pulse Rate 99 H Respiratory Rate 14 Blood Pressure 116/81 Pulse Oximetry 97 Oxygen Flow Rate 0 Fraction of Inspired Oxygen 28 SaO2/FiO2 Ratio 342 Oxygen Delivery Method Nasal Cannula Oxygen Flow Rate 0 Narrative Exam Narrative: GEN: no acute distress HEENT: moist mucous membranes, PERRL NECK: trachea midline, no JVD CV: regular rate and rhythm, no murmurs PULM: clear bilaterally, no wheezes, rhonchi rales ABD: soft, nontender, nondistended, no organomegaly EXT: warm and well perfused with no edema NEURO: awake, alert, oriented, no focal deficits Objective Labs Result Diagrams: 01/28/22 18:40 01/28/22 18:40 PFS Social History household members: none Smoking Status: Never smoker alcohol intake: never Discharge Plan Discharge Plan Patient Disposition: Hospice - Home Provider Discharge Comment: Patient was admitted with non operative pelvic fracture, does not wish for further dialysis and will discharge home on hospice. Medications for comfort prescribed until hospice can open tomorrow. Discharge orders & Medications Prescriptions: New fentanyl 12 mcg/hr Patch 72 Hour 12 mcg topical Q72H 15 Days Qty: 5 0RF oxycodone 5 mg tablet 5 - 10 mg PO Q3HR PRN (Reason: Pain, Severe (7-10)) 14 Days Qty: 60 0RF lorazepam [Lorazepam Intensol] 2 mg/mL concentrate 1 mg PO Q6H PRN (Reason: anxiety) 7 Days Qty: 30 0RF morphine concentrate 100 mg/5 mL (20 mg/mL) solution 10 mg PO Q2HR PRN (Reason: pain) 7 Days Qty: 120 0RF Continued sennosides [senna] 8.6 mg Tablet 8.6 mg PO BID PRN (Reason: Constipation) polyethylene glycol 3350 [Miralax] 17 gram Powder In Packet 17 g PO DAILY melatonin 3 mg Tablet 3 mg PO BEDTIME PRN (Reason: Sleep) bisacodyl 10 mg Suppository 10 mg [place] DAILY PRN (Reason: Constipation) ondansetron 4 mg Tablet,Disintegrating 4 mg PO Q6H PRN (Reason: Nausea) gabapentin 300 mg capsule 600 mg PO BEDTIME acetaminophen [Tylenol Extra Strength] 500 mg tablet 1,000 mg PO Q8H PRN (Reason: Pain (Scale Score 1-3)) gabapentin 300 mg capsule 600 mg PO ONCE PM Discontinued Centrum Silver Women 8 mg iron-400 mcg-300 mcg Tablet 1 tab PO DAILY midodrine 5 mg Tablet 5 mg PO DAILY Rx Instructions: do not give last dose of day after 6PM or within 4 hrs of bedtime ibuprofen 400 mg Tablet 400 mg PO TID PRN (Reason: Pain (Scale Score 1-3)) fluticasone propionate 50 mcg/actuation [place],Suspension 1 spray INTRANASAL BID Rx Instructions: administer into each nostril cinacalcet 30 mg Tablet 30 mg PO DAILY ferric citrate 210 mg iron Tablet 210 mg PO BID Rx Instructions: administer with a meal aspirin 81 mg Capsule 81 mg PO DAILY atorvastatin 40 mg Tablet 40 mg PO QPM nitroglycerin 0.4 mg tablet, sublingual 0.4 mg SL Q5-15M PRN (Reason: Chest Pain) oxycodone 5 mg capsule 5 mg PO Q4H PRN (Reason: Pain (Scale Score 4-6)) Label Comments: no driving/operating hazardous equipment or alcohol/sedatives allopurinol 100 mg tablet 100 mg PO BEDTIME Rx Instructions: Mon,Wed,Fri Follow up/Referrals: Alta Hannah ARNP [Primary Care Provider] - Ginette Benjamin MD [Non-Staff] - Diet/Activity/Treatments Diet: Diet as Tolerated Activity: as tolerated Discharge Data Primary Care Provider: Alta Hannah Quality VTE Deep Vein Thrombosis/Pulmonary Embolism Present on Admission: No
--- NOTE | 2022-02-01 11:22 | PC.RNWOUND ---
Patient turns to right side with assist, primary nurse and animal care worker in room, patient's sacrogluteal area has blanchable redness, skin intact. A bordered foam dressing is placed to sacrum for protection. Pateint says, Oh, it's to help me not get bedsores. Patient is verbally appreciative of cares.
--- NOTE | 2022-02-01 12:23 | CM.DPNOTE ---
Addendum entered by Indira Richards 02/01/22 13:31: Changed to 02/02/22 at 1000, per Taylor, for [facility] transport. Indira Richards CM Assist. Original Note: Called [facility] per Taylor and spoke to Archana to move pickling operator time to 1530. Archana confirmed that they could. Indira Richards CM Assist.
--- NOTE | 2022-02-01 14:04 | CM.DPNOTE ---
DCP Note Working on coordination of DCP throughout day day. Discharge order in place for : discharge to [facility] w/Hospice to f/u Monday Spoke shameka Fuentes at [facility] P# [phone] F# [phone], she said their pharmacy could not fill patient's prescriptions in one day; Patient's family agreed to sweet pickle maker prescriptions in [place] and deliver them this afternoon to [facility] BLS initially rescheduled for 1530 p/u, since hospital bed was not expected until later; then came to find out hospital bed would be delayed until this evening. Gina asking for patient's discharge home to be Mon because there would not be the proper staffing after 1700 this evening to care for patient BLS rescheduled again to 1000 p/u the morning of 02.02.22 Updated TRA Fuentes at [facility], Dr Turner and TRA Braden. RN will update patient and family. Plan: DC expected tomorrow 02.02.22, back to [facility] w/[facility] via BLS JW
[2022-02-01] MEDS: GABAPENTIN 300 MG CAPSULE 600 MG PO ×2 (18:30→20:11)
[2022-02-01 19:00] VITALS: O2SAT 96
--- NOTE | 2022-02-01 19:40 | PC.NURSE ---
16:10 Case Management: Spoke with pt friend Jaceklin who states, pharmacy needs prior authorization for fentanyl and morphine. Spoke to Maryam with case management and she states director of casework department went home and to write a note for them. Spoke to Dr. Turner and notified that prior authorizations were requested from the pharmacy, he states, he will check for faxed prior authorizations. Spoke to pt friend Jackelin, she is worried that [facility] will not take pt if prior authorizations for the medications are not done.
[2022-02-01 20:00] VITALS: BP 98/39; PULSE 92; RESP 17; TEMP 36.6; O2SAT 96
[2022-02-02 07:00] VITALS: BP 104/56; PULSE 87; RESP 16; TEMP 37.2; O2SAT 96
[2022-02-02 07:33] VITALS: O2SAT 96
--- NOTE | 2022-02-02 08:32 | PM.DS.1 ---
History of Present Illness History of Present Illness Date Patient Seen: 02/02/22 Chief complaint: GLF, left groin pain Narrative: Per Dr. Sanchez, Ms. Olvera is an 86W with PMH ESRD on HD who presents to the hospital after a fall at home. Apparently her walker bumped on a doorway and she fell on her left hip and had groin pain. She had no other injuries. She was unable to ambulate so came in to the hospital. Workup showed a superior and inferior left pubic ramus fracture with a pelvic hematoma and L5 compression fracture. She was not deemed to be a surgical candidate. There were initial attempts at placement or transfer to hospital due to continued needs for pain control and dialysis. This was unsuccessful for two days. Today she had discussion with her family and determined she no longer wanted dialysis or other treatment and wanted to be made comfort care. Discussion was had with social work and it was determined that hospice would be attempted to be arranged Monday, but could not be arranged over the . She was admitted for pain control and comfort care. PMH: ESRD on HD Social history: no smoking, EtOH use Family history: denies renal disease in family Discharge Providers Provider Date of admission: 01/30/22 09:50 Discharge Date: 02/02/22 Primary care physician: REBEKAH Correa Consults: 01/27/22 11:55 Consult to [facility] [place] - Reimbursement Representative Stat Comment: Consult to Physical Therapy Evaluate & Treat Comment: left pelvic fracture Physician Instructions: Evaluate and Treat 01/29/22 16:28 Consult to Discharge Planning Routine Comment: Consult to Hospice Referral Urgent Comment: Discharge provider: Gurmeet Turner DO Summary Hospital Course Discharge Diagnosis: 1. ESRD on HD 2. Pelvic fracture with intractable pain Hospital Course: This is an 86 year old female with ESRD on HD who was admitted with uncontrolled pain from non-operative pelvic fracture after she decided to no longer continue hemodialysis and persue hospice. She initially required a significant amount of IV medication for pain control. With time her pain and discomfort improved, and increasing of oral pain medications and adding a fentanyl patch. Hospice is planned to open the day after discharge, and patient will be transported back to her assisted living after hospital bed arrives today. Pain medications were provided (after multiple calls with her prescription insurer denial for her pain medications were over-ridden) and many of her medications were discontinued on discharge to reflect new comfort goals. Time Spent with Patient Time spent: Greater than 30 minutes Exam Vital Signs (past 8 hours): - 02/02/22 07:33 02/02/22 07:00 Temperature 98.9 F Pulse Rate 87 Respiratory Rate 16 Blood Pressure 104/56 L Pulse Oximetry 96 96 Oxygen Delivery Method Room Air Oxygen Flow Rate 0 0 Fraction of Inspired Oxygen 28 SaO2/FiO2 Ratio 342 Oxygen Delivery Method Room Air Oxygen Flow Rate 0 Narrative Exam Narrative: GEN: no acute distress HEENT: moist mucous membranes, PERRL NECK: trachea midline, no JVD CV: regular rate and rhythm, no murmurs PULM: clear bilaterally, no wheezes, rhonchi rales ABD: soft, nontender, nondistended, no organomegaly EXT: warm and well perfused with no edema NEURO: awake, alert, oriented, no focal deficits Objective Labs Result Diagrams: 01/28/22 18:40 01/28/22 18:40 PFSH Social History household members: none Smoking Status: Never smoker alcohol intake: never Discharge Plan Discharge Plan Patient Disposition: Hospice - Home Provider Discharge Comment: Patient was admitted with non operative pelvic fracture, does not wish for further dialysis and will discharge home on hospice. Medications for comfort prescribed until hospice can open tomorrow. Discharge orders & Medications Prescriptions: New fentanyl 12 mcg/hr Patch 72 Hour 12 mcg topical Q72H 15 Days Qty: 5 0RF oxycodone 5 mg tablet 5 - 10 mg PO Q3HR PRN (Reason: Pain, Severe (7-10)) 14 Days Qty: 60 0RF lorazepam [Lorazepam Intensol] 2 mg/mL concentrate 1 mg PO Q6H PRN (Reason: anxiety) 7 Days Qty: 30 0RF morphine concentrate 100 mg/5 mL (20 mg/mL) solution 10 mg PO Q2HR PRN (Reason: pain) 7 Days Qty: 120 0RF Continued sennosides [senna] 8.6 mg Tablet 8.6 mg PO BID PRN (Reason: Constipation) polyethylene glycol 3350 [Miralax] 17 gram Powder In Packet 17 g PO DAILY melatonin 3 mg Tablet 3 mg PO BEDTIME PRN (Reason: Sleep) bisacodyl 10 mg Suppository 10 mg HI DAILY PRN (Reason: Constipation) ondansetron 4 mg Tablet,Disintegrating 4 mg PO Q6H PRN (Reason: Nausea) gabapentin 300 mg capsule 600 mg PO BEDTIME acetaminophen [Tylenol Extra Strength] 500 mg tablet 1,000 mg PO Q8H PRN (Reason: Pain (Scale Score 1-3)) gabapentin 300 mg capsule 600 mg PO ONCE PM Discontinued Centrum Silver Women 8 mg iron-400 mcg-300 mcg Tablet 1 tab PO DAILY midodrine 5 mg Tablet 5 mg PO DAILY Rx Instructions: do not give last dose of day after 6PM or within 4 hrs of bedtime ibuprofen 400 mg Tablet 400 mg PO TID PRN (Reason: Pain (Scale Score 1-3)) fluticasone propionate 50 mcg/actuation [place],Suspension 1 spray INTRANASAL BID Rx Instructions: administer into each nostril cinacalcet 30 mg Tablet 30 mg PO DAILY ferric citrate 210 mg iron Tablet 210 mg PO BID Rx Instructions: administer with a meal aspirin 81 mg Capsule 81 mg PO DAILY atorvastatin 40 mg Tablet 40 mg PO QPM nitroglycerin 0.4 mg tablet, sublingual 0.4 mg SL Q5-15M PRN (Reason: Chest Pain) oxycodone 5 mg capsule 5 mg PO Q4H PRN (Reason: Pain (Scale Score 4-6)) Label Comments: no driving/operating hazardous equipment or alcohol/sedatives allopurinol 100 mg tablet 100 mg PO BEDTIME Rx Instructions: Mon,Wed,Fri Follow up/Referrals: Alta Hannah ARNP [Primary Care Provider] - Ginette Benjamin MD [Non-Staff] - Diet/Activity/Treatments Diet: Diet as Tolerated Activity: as tolerated Discharge Data Primary Care Provider: Alta Hannah Quality VTE Deep Vein Thrombosis/Pulmonary Embolism Present on Admission: No
--- NOTE | 2022-02-02 08:35 | CM.DPC ---
DCP Discharge with Hospice Per MD, spent most of the morning on the phone with pt's pharmacy/insurance as initially pt was denied coverage for both morphine and fentanyl patch which is part of the reason pt's d/c was cancelled yesterday. RADHA spoke to AMBROSE Benítez who has been actively in contact with [facility], [facility], and the pharmacy and wants to make sure pt has pain mngmt coverage until Hospice can start later today. RADHA called [facility] and rescheduled transport from 1000 until 1400 due to the need to get pain meds filled prior to d/c. RADHA called [facility] Teresa and updated and she confirms once pt completes admit pwk this afternoon they are able to get meds filled within an hour or two if needed. SW updated on new time of transport today and they confirm they received the d/c summary and med list yesterday. RADHA called [facility] and RN Toan not yet in the facility but updated staff on time of transport today and they are agreeable. Per MD, just received confirmation that insurance/pharmacy received a 30 day over-ride and can process pt's meds. recommends DPOA call pharmacy after 1100 to confirm pain meds are filled. RADHA called AMBROSE Benítez back and updated on above and she is very appreciative and willing to contact pharmacy around 1100 and is currently at [facility] preparing pt's room and putting sheets on the hospital bed. 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 Plan: Patient to d/c back to [facility] via [facility] at 1400 today and [facility] to open at 1630 today. RAJINDER Gómez
[2022-02-02] MEDS: fentaNYL 12 MCG/PATCH TOP (11:07)
[2022-02-02] MEDS: OXYCODONE IR 5 MG TABLET PO (11:07)
--- NOTE | 2022-02-02 14:54 | PC.NURSE ---
Pt out via gurney by ambulance personnel with all belongings. Large soft bm prior to transfer, new brief, barrier cream applied to bottom. Packet with ambulance personnel.
== END 2022-02-02 14:55 | disposition hospice, home (50) | DRG 542 ==
LOC: ED 01-29 13:45 → AC 01-30 13:10
PROVIDERS: Emergency Medicine; Admitting Provider Internal Medicine; Emergency Provider Emergency Medicine; PCP Nurse Practitioner Gerontology; Referring Provider Emergency Medicine; Visit Provider Internal Medicine
DX: M80.052A Age-related osteoporosis with current pathological fracture, left femur, initial encounter for fracture (principal); N18.6 End stage renal disease; G89.11 Acute pain due to trauma; Z99.2 Dependence on renal dialysis; Z51.5 Encounter for palliative care; Z66 Do not resuscitate
CPT/HCPCS: 36415; 72192; 73502; 80053; 85025; 87635; 94760; 96374; 96376; 97162; 97530; 99284; 99285; C9803; G0378; J2405